=== PATIENT | female | born 1995 | race African-American/Black ===

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

== ENCOUNTER 2017-01-13 16:06 | Emergency (ER) | payer OTHER ==
[2017-01-13] MEDS ORDERED: Lorazepam 2 MG/ML VIAL ONE ×3 (16:23→18:08)
[2017-01-13 17:00] LABS: Oxyhemoglobin 97.5 % (94.0-97.0); Sodium 140 mmol/L (135-148)
[2017-01-13 17:03] LABS: Mode NC; Modified Allen's Test POSITIVE; Vent NO
[2017-01-13 18:13] LABS: #Basophils 0.1 thou/uL (0.0-0.2); #Eosinphils 0.1 thou/uL (0.0-0.7); #Monocytes 0.3 thou/uL (0.11-0.59); #Neutrophils 2.8 thou/uL (1.40-6.50); %Basophils 2.5 % (0.0-1.0); %Eosinophils 2.1 % (0.0-10.0); %Lymphocytes 37.5 % (28.0-48.0); %Monocytes 5.8 % (0.0-4.0); Hematocrit 36.3 % (36.0-47.0); Red Blood Cell (RBC) Count 4.48 mill/uL (4.00-5.20); White Blood Cell (WBC) Count 5.4 thou/uL (4.8-10.8)
[2017-01-13 18:27] LABS: ALT (SGPT) Less than 7 U/L (8-55); AST (SGOT) 13 U/L (5-30); Alkaline Phosphatase 61 U/L (40-150); Anion Gap 12 mmol/L (10-20); BUN (Urea Nitrogen) 6 mg/dL (8.4-21.0); Bilirubin, Total 0.4 mg/dL (0.2-1.2); Calc. Creatinine Clearance 0 mL/min (70-130); Calcium 9.5 mg/dL (7.8-10.44); Carbon Dioxide 20 mmol/L (22-29); Chloride 107 mmol/L (98-107); Dilantin Less than 1.8 ug/mL (10.0-20.0); Estimated GFR-MDRD Greater than 90; Globulin 3.7 g/dL (2.4-3.5)
== END 2017-01-13 19:11 | disposition home or self-care (01) ==
LOC: ERS 16:06
DX: R56.9 Unspecified convulsions (principal)
CPT/HCPCS: 36415; 80053; 80185; 82805; 84146; 85025; 96374; 96376; J2060

== ENCOUNTER 2017-10-15 12:38 | Inpatient (IN) | payer OTHER ==
[2017-10-15] MEDS ORDERED: Lorazepam 2 MG/ML VIAL ONE ×2 (13:32→14:49)
[2017-10-15 13:53] LABS: BHCG - Serum Negative (NEGATIVE); Pregs Control Background? CLEAR/WHITE (CLR/WHITE); Pregs Control Bar Appear? YES (CONTROL BAR)
[2017-10-15 14:08] LABS: ALT (SGPT) 10 U/L (8-55); AST (SGOT) 16 U/L (5-30); Albumin 4.6 g/dL (3.5-5.0); Alkaline Phosphatase 56 U/L (40-150); Anion Gap 16 mmol/L (10-20); BUN (Urea Nitrogen) 9 mg/dL (8.4-21.0); Bilirubin, Total 0.8 mg/dL (0.2-1.2); Calc. Creatinine Clearance 0 mL/min (70-130); Calcium 9.8 mg/dL (7.8-10.44); Carbon Dioxide 20 mmol/L (22-29); Chloride 107 mmol/L (98-107); Estimated GFR-MDRD Greater than 90; Globulin 3.5 g/dL (2.4-3.5); Glucose 75 mg/dL (70-105); Potassium 3.9 mmol/L (3.5-5.1); Protein, Total 8.1 g/dL (6.0-8.3); Sodium 139 mmol/L (136-145)
--- NOTE | 2017-10-15 14:21 | CT ---
CT BRAIN WITHOUT CONTRAST: Comparison: 09-14-16 History: Multiple seizures today. Technique: Multiple contiguous axial images were obtained in a CT of the brain without contrast. FINDINGS: The brain is normal in morphology and attenuation without focal lesions or confluent areas of infarct ion. There is no evidence of hydrocephalus, intracranial hemorrhage, or extraaxial fluid collection. The calvarium and overlying soft tissues are unremarkable. The visualized paranasal sinuses and masto id air cells are well aerated. IMPRESSION: 1. No evidence of acute intracranial abnormality. POS: [facility]
[2017-10-15 14:24] LABS: #Basophils 0.1 thou/uL (0.0-0.2); #Lymphocytes 1.6 thou/uL (1.20-3.40); #Monocytes 0.3 thou/uL (0.11-0.59); #Neutrophils 2.4 thou/uL (1.40-6.50); %Basophils 1.5 % (0.0-1.0); %Lymphocytes 36.3 % (28.0-48.0); %Monocytes 6.1 % (0.0-4.0); %Neutrophils 55.1 % (31.0-61.0); Mean Corpuscular HGB CONC 32.6 g/dL (32.0-36.0); Mean Corpuscular Hemoglobin 25.7 pg (25.0-35.0); Mean Corpuscular Volume 78.9 fL (78.0-98.0); Mean Platelet Volume 7.8 fL (7.4-10.4); Platelet Count 238 thou/uL (130-400); RBC Distribution Width 13.5 % (11.5-14.5); Red Blood Cell (RBC) Count 4.66 mill/uL (4.00-5.20); White Blood Cell (WBC) Count 4.3 thou/uL (4.8-10.8)
[2017-10-15] MEDS ORDERED: Midazolam HCl 2 mg/2 ml Vial ONE ×2 (15:14→15:21)
[2017-10-15] MEDS ORDERED: Succinylcholine Chloride 20 MG/ML 10 ml SYRINGE FS ONE (15:30)
[2017-10-15] MEDS ORDERED: SODIUM CHLORIDE 0.9% IVPB SCH (15:45)
[2017-10-15] MEDS ORDERED: FOSPHENYTOIN SODIUM IVPB SCH (15:45)
[2017-10-15] MEDS ORDERED: fentaNYL Citrate/PF 2,000 MCG in Sodium Chloride 0.9% 60 ML IV SCH (16:00)
[2017-10-15] MEDS ORDERED: Fentanyl 100 MCG/2 ML VIAL ONE (16:05)
[2017-10-15] MEDS ORDERED: Propofol 1,000 MG/100 ML VIAL IV ONE (16:05)
[2017-10-15] MEDS ORDERED: Acetaminophen 650 MG Suppository PR PRN (16:19)
[2017-10-15] MEDS ORDERED: Bisacodyl 10 MG SUPP PR PRN (16:19)
[2017-10-15] MEDS ORDERED: Lacri-Lube Opth Oint 3.5 GM TUBE EA EYE PRN (16:19)
[2017-10-15] MEDS ORDERED: Bisacodyl 5 MG TAB PO PRN (16:19)
[2017-10-15] MEDS ORDERED: CCU Electrolyte Replacement 1 EACH IVPB ONE (16:19)
[2017-10-15 16:22] LABS: Actual Bicarbonate (HCO3a) 18.4 mEq/L (22-28); CO2 Tension 32.7 mmHg (35.0-45.0); Carboxyhemoglobin (COHb) 0.3 gm% (0.0-3.0); Hemoglobin (Hb) 11.4 g/dL (11.4-15.4); O2 Tension (PaO2) 136.7 mmHg (80.0-100.0); pH, Arterial 7.37 (7.35-7.45)
[2017-10-15 16:23] LABS: Analyzer IN Cardio ER; Calcium, Ionized 1.2 mmol/L (1.12-1.30); Potassium - ABG Lab 3.5 mmol/L (3.70-5.30); Puncture Site LR
[2017-10-15 16:24] LABS: ALV-art Gradient 178.925 (0-20)
--- NOTE | 2017-10-15 16:33 | RAD ---
CHEST 1 VIEW: COMPARISON: 12/18/16. HISTORY: Seizure. FINDINGS: Endotracheal tube at the level of the clavicles. Nasogastric tube extends into the diaphragm. Dista l tip is not seen. Normal cardiac silhouette. Pulmonary vessels and hilum are normal. Costophrenic angles are clear. No consolidation or mass. No pneumothorax or osseous abnormalities. IMPRESSION: No acute cardiopulmonary process. POS: [facility]
[2017-10-15] MEDS ORDERED: Magnesium Oxide 400 MG TAB PO PRN ×2 (16:51)
[2017-10-15] MEDS ORDERED: Potassium Phosphate 9 MMOL in Sodium Chloride 0.9% 100 ML IVPB PRN (16:51)
[2017-10-15] MEDS ORDERED: Magnesium 2 GM/NS 0.9% 100 ML 2 GM in Premix Bag 1 BAG IVPB PRN (16:51)
[2017-10-15] MEDS ORDERED: Potassium Chloride 40 MEQ in Sodium Chloride 0.9% 250 ML 250 ML IVPB PRN (16:51)
[2017-10-15] MEDS ORDERED: Potassium Chloride 40 MEQ in Premix Bag 1 BAG IVPB PRN (16:51)
[2017-10-15] MEDS ORDERED: Potassium Chloride 20 MEQ TAB PO PRN (16:51)
[2017-10-15] MEDS ORDERED: CCU ELECTROLYTE REPLACEMENT PROTOCOL FS PRN (16:51)
[2017-10-15] MEDS ORDERED: Potassium Phosphate 12 MMOL in Sodium Chloride 0.9% 250 ML 250 ML IV PRN (16:51)
[2017-10-15] MEDS ORDERED: Potassium Phosphate 15 MMOL in Sodium Chloride 0.9% 250 ML 250 ML IV PRN (16:51)
--- NOTE | 2017-10-15 17:02 | HP ---
PRIMARY CARE PROVIDER: Melyssa Solano M.D. CHIEF COMPLAINT: Seizure. HISTORY OF PRESENT ILLNESS: Ms. Frausto is a 21-year-old lady who was seen at [facility] on 10/15/2017 for seizure. The patient is currently intubated, unable to provide any hist ory. No family members available by the bedside. History was obtained from review of medical record s as well as discussion with the emergency room physician. Ms. Frausto has a history of seizures and is reportedly taking phenytoin at home. She started having seizure this afternoon. She had 3 seizures today prior to arrival at the emergency room. In the [facility] room, she had at least 4 seizures. She was intubated for airway protection. She also receive d Versed. Currently, she is receiving fentanyl. She also received a loading dose of fosphenytoin. Emergency room physician has discussed her case with the neurologist tree surgeon as well as critical care physician and patient is being admitted to CCU. REVIEW OF SYSTEMS: Could not be completed secondary to patient's intubated status. PAST MEDICAL HISTORY: Seizure disorder and dysautonomia. PAST SURGICAL HISTORY: None. ALLERGIES: TAMIFLU and STEROIDS. FAMILY HISTORY: Significant for cancer, hypertension, and diabetes. MEDICATIONS: Need to be clarified. PHYSICAL EXAMINATION: GENERAL: On examination, Ms. Frausto is intubated and sedated, not in acute distress. VITAL SIGNS: Blood pressure is 122/74, pulse 99, respiratory rate 22, and oxygen saturation 100%. S he is afebrile. EYES: No scleral icterus. No conjunctival pallor. ENT: Patient has an endotracheal tube. NECK: Trachea is midline, no cervical lymphadenopathy. RESPIRATORY: Accessory muscles of breathing are not active. Chest wall movements are symmetric bila terally. LUNGS: Clear to auscultation without wheeze, rhonchi or crepitations. CARDIOVASCULAR: S1 and S2 are heard, regular. Peripheral pulse is palpable. No carotid bruit, no p ericardial rub. ABDOMEN: Soft, nontender, bowel sounds are heard, no hepatomegaly, no splenomegaly. NEUROLOGIC: Full neurologic examination not possible secondary to the patient's noncooperation. No facial droop, deep tendon reflexes are 2+. SKIN: No rashes or subcutaneous nodules. MUSCULOSKELETAL: Spontaneous movement of all 4 extremities. LYMPHATIC: No cervical lymphadenopathy. PSYCHIATRIC: Unable to assess mood, affect or orientation to person, place, and time. IMAGING DATA AND LABORATORY DATA: Ms. Frausto's labs and investigations were reviewed. I reviewed he r electrocardiogram, which shows sinus tachycardia, with a corrected QT interval of 446 milliseconds, no ST changes to suggest an acute coronary syndrome. I also reviewed her chest x-ray, which shows e ndotracheal tube in place, no pulmonary infiltrates. Noncontrast CT scan of the brain did not show a ny evidence of acute intracranial abnormality. She has mild leukopenia with 4,300 white cells, enrike l hemoglobin, normal platelet count, unremarkable comprehensive metabolic profile, negative serum pre gnancy test and phenytoin level less than 1.8 and levetiracetam level less than 2.0. ASSESSMENT AND PLAN: Ms. Frausto is a 21-year-old lady who was seen at [facility] on 10/15/2017. Her problem list includes: 1. Seizures: Ms. Frausto is being admitted to the hospital for seizures. She is currently intubated and mechanically ventilated, on fentanyl for sedation. She will be admitted to the critical care it. She has received a loading dose of fosphenytoin, which I will continue at 100 mg 3 times a day. Neurology Service and Pulmonary Critical Care Medicine Services are also being consulted. 2. Leukopenia: Mild, we will recheck. 3. Intubated status: The patient is intubated for airway protection. She will be managed in the itical care unit. 4. Acidosis: Her bicarbonate is low at 20, likely secondary to lactic acidosis from seizure. We wi ll check prolactin level and lactic acid. LEVEL OF RISK: High. LEVEL OF COMPLEXITY: High.
[2017-10-15 18:21] LABS: Lactic Acid 3.4 mmol/L (0.5-2.2)
[2017-10-15 21:06] VITALS: BMI 22.4
--- NOTE | 2017-10-15 23:39 | CON ---
DATE OF CONSULTATION: 10/15/2017 Ms. Frausto is a 21-year-old female. She presented with and "for seizures." She was subsequently intubated after Ativan for somnolence. I was consulted to assist in her management. Mother is actually a decent historian. She says her daughter has been followed extensively at [facility] by a neurologist down there and has actually had EEG monitoring while she was having a seizure. She was told at that time she had pseud oseizures. She is also followed by a cardiac brand director in the [place] and told she has autonomic ins tability, for which she takes midodrine during the day and propranolol at bedtime. Her mother says s he takes her medicine like she is supposed and eats salt and drinks Gatorade like she is supposed to. She does not have any problems. In the past, she was on Keppra and then apparently was hospitalized here with seizures, taken off Kep pra and placed on Dilantin. Her neurologist in [place] declined to refill her Dilantin. The recent seizures that have occurred (4 on 10/10/2017) the mother said lasted about 30 seconds, but were not followed up by a postictal state. Her mother says her neurologist says she may be having seizures now, even though she had pseudoseizur es in the past. She was last hospitalized here in 11/2016. PAST MEDICAL HISTORY: Otherwise unremarkable, except for those related to her dysautonomia and her n eurological issues. There is an old note that says she has narcolepsy. FAMILY HISTORY: Negative for lung disease in early age. SOCIAL HISTORY: She is not a smoker or drinker. ALLERGIES: She is reportedly allergic to OSELTAMIVIR. REVIEW OF SYSTEMS: Not obtainable. She is intubated. PHYSICAL EXAMINATION: VITAL SIGNS: Her blood pressure is 120 systolic, her heart rate was in the 70s. GENERAL: She was awake. She can move all her extremities. She nodded to questions. HEENT: Pupils were equal. NECK: Supple. LUNGS: Clear. HEART: Regular rhythm, no S3. ABDOMEN: Soft. EXTREMITIES: Without asymmetry. LABORATORY DATA: White count 4.3, hemoglobin 12.0, platelets 238. Sodium 139, potassium 3.9, chloride 107, bicarbonate 20, BUN 9, creatinine 0.84. PH 7.37, CO2 of 32, pO2 of 136 on presentation after intubation. IMPRESSION: ?pseudoseizures. History is more supportive of pseudoseizures and actual generalized tonic-clonic seizures. Obviously, she is at a disadvantage, because her neurologist is not seeing her here. His refusal to refill her Dilantin when she followed up with him after admission in 2017 would strongly argue that s he does not have a true seizure disorder. In any event, as I explained to the mother and the grandmother, we will assume that she does have a r eal seizure disorder, keep her comfortable this evening, and then extubate her in the morning if ther e are no further seizure episodes. Dr. Rhodes has seen in the past. Neurology should be consulted as well as her neurologist in [place]. Critical care time was 30 minutes.
[2017-10-16 05:36] LABS: Anion Gap 15 mmol/L (10-20); BUN (Urea Nitrogen) 9 mg/dL (8.4-21.0); Calc. Creatinine Clearance 101 mL/min (70-130); Calcium 9.1 mg/dL (7.8-10.44); Carbon Dioxide 14 mmol/L (22-29); Chloride 109 mmol/L (98-107); Estimated GFR-MDRD Greater than 90; Glucose 73 mg/dL (70-105); Potassium 3.7 mmol/L (3.5-5.1); Sodium 134 mmol/L (136-145)
[2017-10-16 06:23] LABS: #Lymphocytes 0.9 thou/uL (1.20-3.40); #Monocytes 0.5 thou/uL (0.11-0.59); #Neutrophils 6.6 thou/uL (1.40-6.50); %Basophils 0.2 % (0.0-1.0); %Eosinophils 0.2 % (0.0-10.0); %Lymphocytes 11.3 % (28.0-48.0); %Neutrophils 82.3 % (31.0-61.0); Hemoglobin 10.9 g/dL (12.0-16.0); Mean Corpuscular HGB CONC 34.3 g/dL (32.0-36.0); Mean Corpuscular Hemoglobin 26.7 pg (25.0-35.0); Mean Corpuscular Volume 77.8 fL (78.0-98.0); Platelet Count 231 thou/uL (130-400); RBC Distribution Width 13.3 % (11.5-14.5); Red Blood Cell (RBC) Count 4.07 mill/uL (4.00-5.20)
[2017-10-16] MEDS: Enoxaparin Sodium 40 MG/0.4 ML SYRINGE SC SCH (09:00)
[2017-10-16] MEDS: Fosphenytoin Sodium 100 MG in Sodium Chloride 0.9% 50 ML IVPB SCH ×3 (09:00→20:24)
--- NOTE | 2017-10-16 12:00 | PRG ---
DATE OF SERVICE: 10/16/2017 SUBJECTIVE: Kelton Frausto was on fentanyl this morning, but would awaken. Her mother reported that she had 30 minutes "seizure." She had no postictal state. Within 10 minutes she was scratching her nose. PHYSICAL EXAMINATION: VITAL SIGNS: Heart rate 116, respiratory rate was in the teens. Oximetry is in the high 90s. LUNGS : Lungs are clear. HEART: Regular rhythm. ABDOMEN: Abdomen is soft. EXTREMITIES: Without asymmetry. LABORATORY DATA: White count 8.0, hemoglobin 10.9, platelets 231. Sodium 134, potassium 3.7, chlori de 109, bicarbonate 14, BUN 9, creatinine 0.74. Anion gap is 11. Lactate was 3.4 yesterday. IMPRESSION: ? Pseudoseizures. Since I do not have access to the records where the mother reports that she had seizures while connec rae to an EEG machine and was given a diagnosis of pseudoseizures. I am hesitant to say with certain ty that that is what is going on. It certainly clinically appears to be what is going on. The fact that the neurologist in [place] did not keep her on Dilantin after she was discharged here on Dilanti n would argue that. I have recommended extubation. This has been done successfully. If she is stable throughout the aft ernoon she can be transferred to the Stroke Unit. We will sign up off on transfer out of the Critical Care Unit. Critical care time was 30 minutes.
--- NOTE | 2017-10-16 15:27 | PDOC.PN ---
- Subjective Encounter Start Date: 10/16/17 Encounter Start Time: 12:00 -: old records requested/rev Pt seen and exmained, chart reviewe din its entirety, this is my frist visit with this patient complaint of weakness No F/C, no N/V/d/C, no CP or sOB. All systesm reviewed adn neg x as per hPI - Objective MAR Reviewed: Yes Vital Signs & Weight: Vital Signs (12 hours) Temp Pulse Resp BP Pulse Ox 10/16/17 12:00 99.2 F 10/16/17 10:28 94 L 10/16/17 10:24 116 H 12 94 L 10/16/17 10:00 16 10/16/17 09:20 119 H 106/64 10/16/17 08:00 99 F 14 10/16/17 07:10 115 H 96/58 L 10/16/17 04:00 98.1 F 16 Weight Weight 114 lb 13.773 oz Most Recent Monitor Data Heart Rate from ECG 121 NIBP 96/57 NIBP BP-Mean 67 Respiration from ECG 22 SpO2 100 I&O: 10/15/17 10/16/17 10/17/17 06:59 06:59 06:59 Intake Total 55.9 Output Total 590 580 Balance -590 -524.1 Result Diagrams: 10/16/17 05:58 10/16/17 04:37 Radiology Reviewed by me: Yes EKG Reviewed by me: Yes Phys Exam - Physical Examination Constitutional: NAD HEENT: PERRLA, moist MMs, sclera anicteric, oral pharynx no lesions Neck: no nodes, no JVD, supple, full ROM Respiratory: no wheezing, no rales, no rhonchi, clear to auscultation bilateral Cardiovascular: RRR, no significant murmur, no rub Gastrointestinal: soft, non-tender, no distention, positive bowel sounds Musculoskeletal: no edema, pulses present Neurological: non-focal, normal sensation, moves all 4 limbs Lymphatic: no nodes Psychiatric: normal affect, A&O x 3 Skin: no rash, normal turgor, cap refill <2 seconds Dx/Plan - Plan cont current plan of care, social staff worker, out of bed/ambulate * .
[2017-10-16] MEDS: Propranolol 60 MG TAB PO SCH (20:30)
[2017-10-17 05:08] LABS: #Lymphocytes 1.8 thou/uL (1.20-3.40); #Monocytes 0.5 thou/uL (0.11-0.59); #Neutrophils 7.9 thou/uL (1.40-6.50); %Basophils 0.1 % (0.0-1.0); %Eosinophils 0.3 % (0.0-10.0); %Lymphocytes 17.4 % (28.0-48.0); %Monocytes 5.3 % (0.0-4.0); Hemoglobin 11.1 g/dL (12.0-16.0); Mean Corpuscular HGB CONC 34.5 g/dL (32.0-36.0); Mean Corpuscular Hemoglobin 26.9 pg (25.0-35.0); Mean Corpuscular Volume 77.9 fL (78.0-98.0); Mean Platelet Volume 7.2 fL (7.4-10.4); Platelet Count 221 thou/uL (130-400); RBC Distribution Width 13.3 % (11.5-14.5); Red Blood Cell (RBC) Count 4.12 mill/uL (4.00-5.20); White Blood Cell (WBC) Count 10.3 thou/uL (4.8-10.8)
[2017-10-17 05:20] LABS: Anion Gap 16 mmol/L (10-20); BUN (Urea Nitrogen) 9 mg/dL (8.4-21.0); Calc. Creatinine Clearance 93 mL/min (70-130); Calcium 9.1 mg/dL (7.8-10.44); Carbon Dioxide 15 mmol/L (22-29); Chloride 109 mmol/L (98-107); Dilantin 22.9 ug/mL (10.0-20.0); Estimated GFR-MDRD Greater than 90; Glucose 61 mg/dL (70-105); Magnesium 2.2 mg/dL (1.7-2.2); Sodium 136 mmol/L (136-145)
[2017-10-17] MEDS: Enoxaparin Sodium 40 MG/0.4 ML SYRINGE SC SCH (08:37)
[2017-10-17] MEDS: Fosphenytoin Sodium 100 MG in Sodium Chloride 0.9% 50 ML IVPB SCH ×3 (08:37→21:00)
[2017-10-17] MEDS: Acetaminophen 325 MG TAB PO PRN (20:57)
[2017-10-17] MEDS: Propranolol 60 MG TAB PO SCH (20:58)
[2017-10-17] MEDS: Ondansetron ODT 4 MG TAB PO PRN (22:29)
[2017-10-18] MEDS: Fosphenytoin Sodium 100 MG in Sodium Chloride 0.9% 50 ML IVPB SCH (08:19)
[2017-10-18] MEDS: Enoxaparin Sodium 40 MG/0.4 ML SYRINGE SC SCH (08:19)
--- NOTE | 2017-10-18 08:22 | PRG ---
DATE OF SERVICE: 10/18/2017 CONSULTING PHYSICIAN: Hospitalist Service. HISTORY OF PRESENT ILLNESS: Ms. Frausto came in through the emergency room yesterday with repetitive seizures. She was noted to be acidotic with a bicarbonate of 15. Her CT scan of the brain was unrem arkable. She was loaded with Dilantin. Her current Dilantin level is 23. She was previously seen i n 11/2016 for a viral illness and seizure activity. Apparently she has not been compliant with the D ilantin. There is some history of pseudoseizures superimposed on this. She was extubated and moved to the Neurology Unit. She has not had any further seizure activity. She reports some muscle sorene ss, but otherwise has been stable. She was able to eat yesterday. SUMMARY: I would continue Dilantin 300 mg at night. I will be happy to follow up with her in the of pop.
[2017-10-18 11:43] VITALS: BP 95/61; TEMP 99.2
[2017-10-18] MEDS: Acetaminophen 325 MG TAB PO PRN (12:25)
--- NOTE | 2017-10-18 13:38 | DIS ---
DATE OF ADMISSION: 10/15/2017 DATE OF DISCHARGE: 10/18/2017 PRIMARY CARE PHYSICIAN: Melyssa Solano M.D. NEUROLOGIST: Was seen by Rowdy Rhodes M.D. DISCHARGE DIAGNOSES: 1. Status epilepticus. 2. Seizure disorder. 3. Hypertension. CONSULTATIONS: Rowdy Rhodes M.D. PROCEDURES: None. HISTORY AND PHYSICAL: Ms. Frausto is a 21-year-old female who presented in respirato ry failure, intubated, after being found down with tonic clonic type activity. She presented to the emergency department where she was evaluated. HOSPITAL COURSE: The patient was seen and examined in the emergency department by the provider and w e were called for admission. The patient was intubated and was admitted to the Critical Care Unit. Pulmonary Critical Care was consulted and was seen that evening by Dr. Tariq Miller. The patient was extubated over the next morning and did well. She remained stable and no further seizures and loade d with fosphenytoin and was transferred to the floor on 10/17/2017. She was seen ultimately by Neurology on 10/18/2017, recommended to continue p.o. Dilantin and outpat ient followup. The patient was seizure free and was subsequently discharged on p.o. Dilantin. PHYSICAL EXAMINATION: The patient was seen and examined on the day of discharge. Discharge plan and disposition were discussed with the patient [id number] at the bedside. DISCHARGE MEDICATIONS: 1. Phenytoin 100 mg p.o. t.i.d. Prescription sent. 2. Propranolol 60 mg p.o. at bedtime. 3. Midodrine 10 mg p.o. t.i.d. FOLLOWUP APPOINTMENTS: 1. Primary care physician within a week. 2. Rowdy Rhodes M.D. per his clinic. DISCHARGE CONDITION: Stable. DISPOSITION: Will be discharged home via private vehicle. ACTIVITY: Per cardiopulmonary limits. DISCHARGE DIET: Heart healthy recommended.
[2017-10-18] MEDS: Ondansetron ODT 4 MG TAB PO PRN (13:44)
--- NOTE | 2017-10-19 11:20 | EKG ---
Test Reason : Blood Pressure : / mmHG Vent. Rate : 101 BPM Atrial Rate : 101 BPM P-R Int : 138 ms QRS Dur : 086 ms QT Int : 344 ms P-R-T Axes : 066 076 038 degrees QTc Int : 446 ms Sinus tachycardia Otherwise normal ECG Confirmed by DANIEL FLANAGAN DO ([id number]), desk editor PAWAN CAR ([id number]) on 10/19/2017 11:19:43 AM Referred By: Confirmed By:DANIEL FLANAGAN DO
== END 2017-10-18 14:22 | disposition home or self-care (01) | DRG 101 ==
LOC: ERS 12:38 → CCU 19:32 → 2SE 10-17 18:47
PROVIDERS: ADMIT Internal Medicine; ATTEND Internal Medicine
PROC: 0BH17EZ Insertion of Endotracheal Airway into Trachea, Via Natural or Artificial Opening (ICD-10-PCS; principal; 2017-10-15)
PROC: 5A1935Z Respiratory Ventilation, Less than 24 Consecutive Hours (ICD-10-PCS; 2017-10-15)
DX: G40.901 Epilepsy, unspecified, not intractable, with status epilepticus (principal); E87.2 Acidosis; I10 Essential (primary) hypertension; G47.419 Narcolepsy without cataplexy; Z88.8 Allergy status to other drugs, medicaments and biological substances; D72.819 Decreased white blood cell count, unspecified
CPT/HCPCS: 31500; 36415; 70450; 71045; 80048; 80053; 80177; 80185; 82805; 83605; 83735; 84146; 84703; 85025; 93005; 94002; 94003; J1650; J2060; J2250; J2704; J3010; J7050; Q0162; Q2009

== ENCOUNTER 2017-11-08 20:42 | Emergency (ER) | payer OTHER ==
[2017-11-08] MEDS ORDERED: Lorazepam 2 MG/ML VIAL ONE (21:09)
[2017-11-08] MEDS ORDERED: Fosphenytoin Sodium 1,500 MG in Sodium Chloride 0.9% 100 ML IVPB SCH (21:15)
[2017-11-08 21:26] LABS: #Basophils 0.1 thou/uL (0.0-0.2); #Eosinphils 0.2 thou/uL (0.0-0.7); #Lymphocytes 2.3 thou/uL (1.20-3.40); #Monocytes 0.6 thou/uL (0.11-0.59); #Neutrophils 5.4 thou/uL (1.40-6.50); %Basophils 1.3 % (0.0-1.0); %Eosinophils 2.1 % (0.0-10.0); %Lymphocytes 26.8 % (28.0-48.0); %Monocytes 6.7 % (0.0-4.0); %Neutrophils 63.1 % (31.0-61.0); Mean Corpuscular HGB CONC 32.7 g/dL (32.0-36.0); Mean Corpuscular Hemoglobin 26.1 pg (25.0-35.0); Mean Corpuscular Volume 79.9 fL (78.0-98.0); Mean Platelet Volume 7.2 fL (7.4-10.4); Platelet Count 271 thou/uL (130-400); Red Blood Cell (RBC) Count 4.23 mill/uL (4.00-5.20); White Blood Cell (WBC) Count 8.6 thou/uL (4.8-10.8)
[2017-11-08 21:49] LABS: ALT (SGPT) Less than 7 U/L (8-55); AST (SGOT) 11 U/L (5-30); Albumin 4.2 g/dL (3.5-5.0); Alkaline Phosphatase 62 U/L (40-150); Anion Gap 12 mmol/L (10-20); BUN (Urea Nitrogen) 6 mg/dL (8.4-21.0); Bilirubin, Total 0.3 mg/dL (0.2-1.2); Calc. Creatinine Clearance 0 mL/min (70-130); Calcium 9.4 mg/dL (7.8-10.44); Carbon Dioxide 23 mmol/L (22-29); Chloride 109 mmol/L (98-107); Dilantin Less than 1.8 ug/mL (10.0-20.0); Estimated GFR-MDRD Greater than 90; Globulin 3.8 g/dL (2.4-3.5); Glucose 82 mg/dL (70-105); Potassium 3.8 mmol/L (3.5-5.1); Sodium 140 mmol/L (136-145)
[2017-11-08 21:51] LABS: BHCG - Serum Negative (NEGATIVE); Pregs Control Background? CLEAR/WHITE (CLR/WHITE); Pregs Control Bar Appear? YES (CONTROL BAR)
== END 2017-11-08 23:13 | disposition home or self-care (01) ==
LOC: ERS 20:42
DX: G40.909 Epilepsy, unspecified, not intractable, without status epilepticus (principal); R89.2 Abnormal level of other drugs, medicaments and biological substances in specimens from other organs, systems and tissues; Z79.899 Other long term (current) drug therapy
CPT/HCPCS: 36415; 80053; 80185; 82550; 83605; 84146; 84703; 85025; 94760; 96361; 96365; 96375; J2060; J7050; Q2009

== ENCOUNTER 2018-09-06 20:25 | Emergency (ER) | payer OTHER ==
[~2018-09-06 20:25] MED LIST: Iopamidol 370 76% 100 ML VIAL ONE
[2018-09-06] MEDS ORDERED: Morphine 4 MG/ML VIAL ONE (21:02)
[2018-09-06] MEDS ORDERED: Ondansetron PF 4 MG/2 ML Vial ONE (21:02)
[2018-09-06 21:37] LABS: #Basophils 0.1 thou/uL (0.0-0.2); #Eosinphils 0.1 thou/uL (0.0-0.7); #Lymphocytes 2.1 thou/uL (1.20-3.40); #Monocytes 0.5 thou/uL (0.11-0.59); #Neutrophils 3.9 thou/uL (1.40-6.50); %Basophils 1.3 % (0.0-1.0); %Eosinophils 1.5 % (0.0-10.0); %Lymphocytes 31.5 % (28.0-48.0); %Neutrophils 57.7 % (31.0-61.0); Hemoglobin 11.9 g/dL (12.0-16.0); Mean Corpuscular HGB CONC 32.2 g/dL (32.0-36.0); Mean Corpuscular Hemoglobin 25.5 pg (25.0-35.0); Mean Corpuscular Volume 79.3 fL (78.0-98.0); Mean Platelet Volume 7.3 fL (7.4-10.4); Platelet Count 292 thou/uL (130-400); RBC Distribution Width 13.2 % (11.5-14.5); Red Blood Cell (RBC) Count 4.67 mill/uL (4.00-5.20); White Blood Cell (WBC) Count 6.7 thou/uL (4.8-10.8)
[2018-09-06 21:44] LABS: BHCG - Serum Negative (NEGATIVE); Pregs Control Background? CLEAR/WHITE (CLR/WHITE); Pregs Control Bar Appear? YES (CONTROL BAR)
[2018-09-06 21:57] LABS: ALT (SGPT) 7 U/L (8-55); AST (SGOT) 12 U/L (5-34); Albumin 4.8 g/dL (3.5-5.0); Alkaline Phosphatase 56 U/L (40-150); Anion Gap 18 mmol/L (10-20); BUN (Urea Nitrogen) 10 mg/dL (7.0-18.7); Bilirubin, Total 0.4 mg/dL (0.2-1.2); Calc. Creatinine Clearance 0 mL/min (70-130); Calcium 10.4 mg/dL (7.8-10.44); Carbon Dioxide 20 mmol/L (22-29); Chloride 106 mmol/L (98-107); Estimated GFR-MDRD Greater than 90; Globulin 3.5 g/dL (2.4-3.5); Glucose 83 mg/dL (70-105); Potassium 3.8 mmol/L (3.5-5.1); Protein, Total 8.3 g/dL (6.0-8.3); Sodium 140 mmol/L (136-145)
--- NOTE | 2018-09-06 22:22 | CT ---
CT Brain WO Con: 09/06/2018 8:49 PM CLINICAL HISTORY: Pain injury. COMPARISON: None. FINDINGS: Hemorrhage: None. Ventricular system: Normal in size and morphology for the patient's age. Cerebral parenchyma: Normal Midline shift: None. Mass: No mass effect. Calvarium: Normal. Visualized Paranasal sinuses: Clear. IMPRESSION: No acute intracranial abnormalities.
--- NOTE | 2018-09-06 22:23 | CT ---
CT Cervical Spine WO Con Indication: Pain/Injury COMPARISON: None FINDINGS: Acute fracture/subluxation: None Spinal alignment: No acute malalignment. Vertebral body heights: Maintained. Cervical spine degenerative change: None of significance. IMPRESSION: No acute osseous abnormality.
--- NOTE | 2018-09-06 22:31 | CT ---
EXAM: Chest, Abdomen and Pelvic CT scan with contrast: CT thoracic spine with contrast CT lumbar spine with contrast 3-D volume rendering HISTORY: Pain, injury COMPARISON: None FINDINGS: No consolidation, suspicious nodule, or mass. No pleural effusion. No pneumothorax. No adenopathy. No acute process of the mediastinal structures. Liver: Unremarkable. Gallbladder:Unremarkable. Pancreas:Unremarkable Spleen:Unremarkable. Adrenal glands:Unremarkable. Kidneys:No renal calculus or acute obstruction.No solid or cystic mass. Bowel: Incomplete evaluation without enteric contrast. Areas of wall prominence of the colon may rela te to underdistention and unopacified state. Correlate clinically. Urinary Bladder: Moderate distention Adenopathy:No adenopathy within the abdomen or pelvis. Free Air: No free air. Ascites: Trace free pelvic fluid Osseous structures: No acute osseous abnormalities. IMPRESSION: No acute posttraumatic sequela is seen. Transcribed Date/Time: 09/06/2018 10:37 PM
== END 2018-09-06 23:00 | disposition home or self-care (01) ==
LOC: ERS 20:25
DX: S09.90XA Unspecified injury of head, initial encounter (principal); R56.9 Unspecified convulsions; M54.2 Cervicalgia; M25.511 Pain in right shoulder; M25.512 Pain in left shoulder; V43.62XA Car passenger injured in collision with other type car in traffic accident, initial encounter
CPT/HCPCS: 36415; 70450; 71260; 72125; 74177; 80053; 84703; 85025; 96374; 96375; J2270; J2405; Q9967

== ENCOUNTER 2018-10-12 17:42 | Inpatient (IN) | payer OTHER ==
[2018-10-12] MEDS ORDERED: Lorazepam 2 MG/ML VIAL ONE ×3 (17:49→23:50)
[2018-10-12 18:27] LABS: Amphetamine Not Detected (NotDetected); Barbiturates Screen Detected (NotDetected); Benzodiazepine Screen Detected (NotDetected); Cocaine Metabolite Screen Not Detected (NotDetected); Medtox Control Line Valid? VALID (VALID); Medtox Reader # READER 4; Methadone Not Detected (NotDetected); Methamphetamine Not Detected (NotDetected); Opiate Screen Not Detected (NotDetected); Oxycodone Screen Not Detected (NotDetected); Phencyclidine (PCP) Not Detected (NotDetected); THC/Cannabinoid Screen Not Detected (NotDetected); Tricyclic Screen Not Detected (NotDetected)
[2018-10-12 18:32] LABS: #Basophils 0.1 thou/uL (0.0-0.2); #Eosinphils 0.1 thou/uL (0.0-0.7); #Lymphocytes 1.7 thou/uL (1.20-3.40); #Monocytes 0.5 thou/uL (0.11-0.59); #Neutrophils 4.2 thou/uL (1.40-6.50); %Basophils 0.9 % (0.0-1.0); %Eosinophils 1.1 % (0.0-10.0); %Monocytes 7.4 % (0.0-4.0); %Neutrophils 64.6 % (31.0-61.0); Hemoglobin 12.3 g/dL (12.0-16.0); Mean Corpuscular HGB CONC 33.8 g/dL (32.0-36.0); Mean Corpuscular Volume 79.9 fL (78.0-98.0); Mean Platelet Volume 7.6 fL (7.4-10.4); Platelet Count 232 thou/uL (130-400); RBC Distribution Width 13.4 % (11.5-14.5); Red Blood Cell (RBC) Count 4.58 mill/uL (4.00-5.20); White Blood Cell (WBC) Count 6.5 thou/uL (4.8-10.8)
[2018-10-12 18:38] LABS: BHCG - Serum Negative (NEGATIVE); Pregs Control Background? CLEAR/WHITE (CLR/WHITE); Pregs Control Bar Appear? YES (CONTROL BAR)
[2018-10-12 18:53] LABS: ALT (SGPT) Less than 7 U/L (8-55); AST (SGOT) 10 U/L (5-34); Albumin 4.3 g/dL (3.5-5.0); Alkaline Phosphatase 55 U/L (40-150); Anion Gap 17 mmol/L (10-20); BUN (Urea Nitrogen) 6 mg/dL (7.0-18.7); Bilirubin, Total 0.4 mg/dL (0.2-1.2); Calc. Creatinine Clearance 0 mL/min (70-130); Calcium 9.7 mg/dL (7.8-10.44); Carbon Dioxide 17 mmol/L (22-29); Chloride 107 mmol/L (98-107); Estimated GFR-MDRD Greater than 90; Globulin 3.3 g/dL (2.4-3.5); Glucose 104 mg/dL (70-105); Potassium 3.5 mmol/L (3.5-5.1); Protein, Total 7.6 g/dL (6.0-8.3); Sodium 137 mmol/L (136-145)
--- NOTE | 2018-10-12 19:33 | CT ---
CT BRAIN WITHOUT CONTRAST: Date: 10/12/18 HISTORY: Seizure. FINDINGS: Comparison made with exam of 09/06/18. No evidence of infarct, hemorrhage, midline shift, or abnormal extra-axial fluid collections are seen . The ventricular size is normal and the basilar cisterns are patent. The bony calvarium is intact. T he visualized paranasal sinuses and mastoid air cells are well aerated. IMPRESSION: No CT evidence of acute intracranial process. POS: ERINA
[2018-10-12] MEDS ORDERED: diphenhydrAMINE 50 MG/ML VIAL ONE (19:38)
[2018-10-12] MEDS ORDERED: Ondansetron ODT 4 MG TAB PO PRN (21:18)
[2018-10-12] MEDS ORDERED: Acetaminophen 325 MG TAB PO PRN (21:18)
[2018-10-12] MEDS ORDERED: Ondansetron PF 4 MG/2 ML Vial IVP PRN (21:18)
[2018-10-12] MEDS ORDERED: Atropine Sulfate 1 mg/10 ml Syringe ONE (23:23)
[2018-10-12] MEDS ORDERED: Lorazepam 2 MG/ML VIAL SLOW IVP SCH (23:30)
[2018-10-12] MEDS ORDERED: Valproate Sodium 1,000 MG in Sodium Chloride 0.9% 100 ML IVPB SCH (23:45)
[2018-10-12 23:53] LABS: Lactic Acid 2.7 mmol/L (0.5-2.2)
[2018-10-12 23:57] VITALS: BMI 22.8
[2018-10-12 23:58] LABS: Anion Gap 14 mmol/L (10-20); BUN (Urea Nitrogen) 5 mg/dL (7.0-18.7); Calc. Creatinine Clearance 99 mL/min (70-130); Calcium 8.9 mg/dL (7.8-10.44); Carbon Dioxide 20 mmol/L (22-29); Chloride 108 mmol/L (98-107); Estimated GFR-MDRD Greater than 90; Glucose 86 mg/dL (70-105); Magnesium 2.1 mg/dL (1.7-2.2); Potassium 3.7 mmol/L (3.5-5.1); Sodium 138 mmol/L (136-145)
[2018-10-13] MEDS ORDERED: Lorazepam 2 MG/ML VIAL SLOW IVP PRN (00:11)
[2018-10-13] MEDS ORDERED: Lorazepam 2 MG/ML VIAL SLOW IVP SCH (00:15)
--- NOTE | 2018-10-13 02:25 | HP ---
PRIMARY CARE DOCTOR: Out of town physician. CODE STATUS: Full code. TIME OF EVALUATION: 8:35 p.m. CHIEF COMPLAINT: Seizures. HISTORY OF PRESENT ILLNESS: This is a 22-year-old female patient with past medical history of seizure, usually will have 2 to 3 seizures every month. The patient came to the hospital after having an episode of seizure that lasted for about 1 minute. There were generalized tonic or clonic symptoms that were severe with no clear triggers, no alleviating factors. During my initial examination, the patient was in postictal state, feeling very tired, but unable to communicate. After the patient was placed in the floor, the patient went into status epilepticus, had around 5 seizures in less than 10 minutes. The patient had received benzodiazepine. Seizure had continued, I have given loading dose of valproic acid since the patient has reportedly had some reactions to Keppra and fosphenytoin in the past. We will monitor her in ICU. The patient has a history of being intubated in the past due to status epilepticus. Procalcitonin was high, seems to be a real seizure. REVIEW OF SYSTEMS: Twelve systems were reviewed and negative except for the findings mentioned above. PAST MEDICAL HISTORY: Positive for , postural orthostatic tachycardia syndrome, narcolepsy with cataplexy, chest pain, headaches, lower extremity weakness, exercise intolerance due to syncope. PAST SURGICAL HISTORY: No surgical history. PSYCH HISTORY: No previous psych history. SOCIAL HISTORY: No alcohol, no drugs, no smoking history. Lives at home with parents. FAMILY HISTORY: Reviewed and noncontributory to current presentation. KNOWN ALLERGIES: Oseltamivir (Tamiflu), possible also reactions to fosphenytoin and Keppra reportedly. These 2 medications have cause hypotension and bradycardia. REPORTED MEDICATIONS: From home, 1. Metoprolol 60 mg once a day at bedtime. 2. Midodrine 10 mg three times a day. 3. Flexeril 1 tablet orally every 8 hours. 4. Motrin 800 mg every 8 hours. PHYSICAL EXAMINATION: VITAL SIGNS: On presentation, blood pressure 113/75 with heart rate 108, respiratory rate was 16, oxygen saturation 100 on room air. GENERAL APPEARANCE: The patient is alert, oriented, not in acute distress. HEENT: Eyes, normal conjunctivae. Moist oral mucosa. Anicteric. No JVD. RESPIRATORY: Bilateral air entry. No rales. No wheezing. Symmetric expansion. CARDIOVASCULAR: Regular rate and rhythm except for when the patient has seizure, the patient becomes tachycardic. ABDOMEN: Soft. Normal bowel sounds. MUSCULOSKELETAL: Baseline range of motion and strength. No tenderness. Capillary refill seems to be intact. NEURO: The patient has bilateral lower extremity weakness, reportedly this happened before when she had previous seizures. PSYCH: The patient is alert, oriented, not in acute distress. The patient becomes confused in the postictal state. IMAGING: EKG was reviewed, shows sinus tachycardia at the rate of 122. Brain CT was done, the patient has no evidence of acute intracranial process. LABORATORY DATA: Reviewed. The patient has white count 6.5, hemoglobin 12.3, MCV 79.9, platelet count 232. Sodium 137, potassium 3.5, chloride 107, carbon dioxide 17, anion gap 17, BUN 6, creatinine 0.8, GFR greater than 90, glucose 104. LFTs were negative. Prolactin 171. Serum test was negative. Toxicology was positive for barbiturates and benzodiazepines. ASSESSMENT AND PLAN: The patient will be placed in the hospital with following medical problems. 1. Status epilepticus. The patient has multiple seizures after admission. The patient has been given Ativan and also started on valproic acid. If the patient continues to have seizure after this approach, we might need to might need intubation for this reason. We will continue to monitor in ICU. 2. Deep venous thrombosis prophylaxis. 3. Lactic acidosis likely secondary to acute seizure. Job ID: [id number]
[2018-10-13] MEDS: Sodium Chloride 0.9% 1,000 ML IV SCH ×2 (02:43→11:29)
[2018-10-13 07:31] LABS: Hemoglobin 12.4 g/dL (12.0-16.0); Mean Corpuscular HGB CONC 32.2 g/dL (32.0-36.0); Mean Corpuscular Volume 80.7 fL (78.0-98.0); Mean Platelet Volume 7.5 fL (7.4-10.4); Platelet Count 231 thou/uL (130-400); RBC Distribution Width 13.7 % (11.5-14.5); Red Blood Cell (RBC) Count 4.76 mill/uL (4.00-5.20); White Blood Cell (WBC) Count 7.1 thou/uL (4.8-10.8)
--- NOTE | 2018-10-13 07:44 | PDOC.HOSPP ---
- Subjective Encounter Date: 10/13/18 Encounter Time: 07:42 Subjective: Called to see Ms. Frausto due to an acute seizure. She had some tonic clonic movements,She is non-responsive. She is protecting her airway. - Objective Vital Signs & Weight: Vital Signs (12 hours) Temp Pulse Pulse Pulse Pulse Resp Resp 10/13/18 03:00 98.8 F 10/13/18 00:14 10/12/18 23:55 103 H 111 H 100 20 10/12/18 23:40 98.3 F 10/12/18 22:53 98.6 F 91 12 Resp Resp BP BP BP Pulse Ox Pulse Ox 10/13/18 03:00 10/13/18 00:14 100 10/12/18 23:55 20 20 111/56 L 114/51 L 90/44 L 99 10/12/18 23:40 10/12/18 22:53 98 Pulse Ox Pulse Ox 10/13/18 03:00 10/13/18 00:14 10/12/18 23:55 100 97 10/12/18 23:40 10/12/18 22:53 Weight Weight 116 lb 13.52 oz Most Recent Monitor Data Heart Rate from ECG 94 NIBP 109/64 NIBP BP-Mean 79 Respiration from ECG 15 SpO2 100 I&O: 10/12/18 10/13/18 10/14/18 06:59 06:59 06:59 Intake Total 315 Output Total 150 Balance 165 Result Diagrams: 10/13/18 07:20 10/12/18 23:27 Additional Labs: Accuchecks 10/12/18 23:21 POC Glucose 83 ROS - Medication Medications: Active Medications Generic Name Dose Route Start Last Admin Trade Name Freq PRN Reason Stop Dose Admin Sodium Chloride 1,000 mls @ 100 mls/hr 10/13/18 02:45 10/13/18 02:43 Normal Saline 0.9% IV 1,000 mls .Q10H CORTEZ Administration Lorazepam 2 mg 10/13/18 00:11 10/13/18 07:26 Ativan SLOW IVP 2 mg Q2H PRN Administration SEIZURE ACTIVITY - Exam Eye: PERRL, anicteric sclera Heart: RRR, no murmur, no gallops, no rubs, normal peripheral pulses Respiratory: CTAB, no wheezes, no rales, no ronchi, normal chest expansion, no tachypnea, normal percussion Gastrointestinal: soft, non-tender, non-distended, normal bowel sounds, no palpable masses, no hepatomegaly Extremities: no edema Hosp A/P (1) Status epilepticus Code(s): G40.901 - EPILEPSY, UNSP, NOT INTRACTABLE, WITH STATUS EPILEPTICUS Status: Acute - Plan * Status Epilepticus- She has been loaded with Cerebrex, Will add some scheduled Cerebrex * Will add Valium PRN as an option * She is maintaining her airway, Oxygen saturation are 100% on room air- will hold off on intubation at this time. * Await Neurology evaluation
[2018-10-13 07:46] LABS: Anion Gap 12 mmol/L (10-20); BUN (Urea Nitrogen) 4 mg/dL (7.0-18.7); Calc. Creatinine Clearance 100 mL/min (70-130); Carbon Dioxide 22 mmol/L (22-29); Chloride 108 mmol/L (98-107); Estimated GFR-MDRD Greater than 90; Glucose 67 mg/dL (70-105); Potassium 3.9 mmol/L (3.5-5.1); Sodium 138 mmol/L (136-145)
[2018-10-13] MEDS ORDERED: Diazepam 10 MG/2 ML SYRINGE IVP PRN (07:47)
[2018-10-13 08:14] LABS: Eosinophils 1 % (0-10); Lymphocytes 45 % (28-48); MDiff Complete? YES; Monocytes 4 % (0-4); Neutrophil 50 % (31-61); RBC Morphology Normal
[2018-10-13] MEDS ORDERED: Enoxaparin Sodium 40 MG/0.4 ML SYRINGE SC SCH (09:00)
--- NOTE | 2018-10-13 09:16 | CON ---
DATE OF CONSULTATION: HISTORY OF PRESENT ILLNESS: Kelton Frausto is a 22-year-old female, who came into the hospital after she had seizure activity. Apparently, she is having 2 or 3 episodes per month, unclear whom she is seeing locally. She has some kind of reaction to Keppra in the past, that is why, she was started on fosphenytoin. She was transferred to the ICU and again, she had some kind of episodes of seizure activity. She dropped to status per the nurses. When arrives, she is awake, alert, responsive, except for a headache. She denies any other problem. PAST MEDICAL HISTORY: Pertinent for apparently a diagnosis of cataplexy, though we will try and get additional information when family arrives. PAST SURGICAL HISTORY: None. CHRONIC MEDICATION: As noted includes; 1. Inderal 60 mg at nighttime. 2. Midodrine 10 mg three times a day. 3. She is now getting Dilantin 300 mg every 8 hours. 4. Ativan p.r.n. 5. Zofran p.r.n. 6. Valium p.r.n. ALLERGIES: TAMIFLU. SOCIAL HISTORY: Tobacco, none. Alcohol, none. REVIEW OF SYSTEMS: Otherwise, unremarkable. PHYSICAL EXAMINATION: GENERAL: Awake, alert, and responsive. She moves all 4 extremities. VITAL SIGNS: Blood pressure 128/81, saturations are 100%, respirations 20, and temperature 98. CHEST: Reveals no wheezing or crackles. CARDIAC: Normal S1 and S2. No gallops. ABDOMEN: No masses. DIAGNOSTIC STUDIES: Lytes are normal. CT brain was negative. Prolactin was 171. She had benzodiazepines and barbiturates in her drug screen. IMPRESSION: Seizure activity and respiratory failure. PLAN: Continue present treatment. We will follow in the ICU. TIME SPENT: This is a 45-minute critical care time. Job ID: [id number]
--- NOTE | 2018-10-13 23:01 | CON ---
DATE OF CONSULTATION: 10/13/2018 CONSULTING PHYSICIAN: Hospitalist Service. IMPRESSION: Pseudoseizures. PLAN: Continue home medication. The patient can be moved out of the ICU. HISTORY OF PRESENT ILLNESS: Ms. Frausto is a 22-year-old black female with a known history of pseudoseizures, has been followed by a physician in the [place] area. It is unclear as to what he was treating her with prior to admission. She had what appeared to be one of her seizures and her family brought her into the hospital. She had a CT of the brain done, which was normal. Prolactin was 171. Her tox screen was positive for barbiturates and benzodiazepines. She had a prolonged EEG done today, which was completely normal. She was acting postictal when the EEG was started and the background appeared to be in normal waking background. Her family notes that she was previously diagnosed with nonepileptic seizures. PAST MEDICAL HISTORY: Otherwise negative. ALLERGIES: OSELTAMIVIR. FAMILY HISTORY: Noncontributory. REVIEW OF SYSTEMS: Not obtainable at this point. PHYSICAL EXAMINATION: GENERAL: She is a well-nourished young woman, lying in bed, in no acute distress. VITAL SIGNS: Blood pressure 115/58, pulse 116, saturations 95%, respirations 24. HEENT: Unremarkable. NECK: Supple. EXTREMITIES: No cyanosis or edema. NEUROLOGIC: She is awake and cooperative. Her speech was fluent and clear. Exam was nonfocal. No abnormal movements were seen. Gait was not tested. SUMMARY: A young woman with pseudoseizures. I do not see any acute neurologic issues. Prolactin level should be followed up on to rule out a possibility of a prolactinoma. Job ID: [id number]
[2018-10-14] MEDS: Sodium Chloride 0.9% 1,000 ML IV SCH (00:07)
[2018-10-14 07:48] VITALS: BP 106/65; TEMP 98
[2018-10-14 08:11] LABS: Anion Gap 15 mmol/L (10-20); BUN (Urea Nitrogen) 5 mg/dL (7.0-18.7); Calc. Creatinine Clearance 107 mL/min (70-130); Calcium 9.2 mg/dL (7.8-10.44); Carbon Dioxide 15 mmol/L (22-29); Chloride 110 mmol/L (98-107); Estimated GFR-MDRD Greater than 90; Glucose 65 mg/dL (70-105); Sodium 136 mmol/L (136-145)
--- NOTE | 2018-10-14 09:23 | EEG ---
Referring Physician: Tabby FROST EEG # [id number] TEST TYPE: PORTABLE OVENS SUPERVISOR CONTINUOUS EEG MONITORING REPORT: AN EEG USING THE INTERNATIONAL TEN-TWENTY SYSTEM OF ELECTRODE PLACEMENT WAS PERFORMED. This is a continuous EEG monitoring in the ICU lasting approximately 4 hours. The background activity is predominately 14 hertz beta superimposed on 10 hertz alpha activity. The patient remained awake throughout the study. Photic stimulation was unremarkable. No epileptiform features were seen. IMPRESSION: THIS IS A NORMAL AWAKE EXTENDED EEG. Spd Manager: BECKA [employer] Refrigeration Technician: EEG.JAQUAN TUCKER
--- NOTE | 2018-10-14 10:27 | PDOC.HOSPP ---
- Subjective Encounter Date: 10/14/18 Encounter Time: 10:25 Subjective: Ms. Frausto was seen today in follow-up of seizure disorder. She had an episode earlier today, it lasted only a few seconds. She is resting when I saw her, and her mother is at the bedside. - Objective Vital Signs & Weight: Vital Signs (12 hours) Temp Pulse Resp BP Pulse Ox 10/14/18 09:00 100 10/14/18 07:48 98.0 F 102 H 16 106/65 100 10/14/18 04:00 98.1 F 103 H 18 100/59 L 98 Weight Weight 116 lb 13.52 oz Most Recent Monitor Data Heart Rate from ECG 116 NIBP 109/84 NIBP BP-Mean 92 Respiration from ECG 17 SpO2 100 I&O: 10/13/18 10/14/18 10/15/18 06:59 06:59 06:59 Intake Total 315 1847 Output Total 150 1550 Balance 165 297 Result Diagrams: 10/13/18 07:20 10/14/18 07:37 ROS - Medication Medications: Active Medications Generic Name Dose Route Start Last Admin Trade Name Freq PRN Reason Stop Dose Admin Acetaminophen 650 mg 10/12/18 21:18 10/13/18 22:23 Tylenol PO 650 mg Q4H PRN Administration Headache/Fever/Mild Pain (1-3) Enoxaparin Sodium 40 mg 10/13/18 09:00 10/13/18 08:43 Lovenox SC 40 mg 0900 CORTEZ Administration Sodium Chloride 1,000 mls @ 100 mls/hr 10/13/18 02:45 10/14/18 00:07 Normal Saline 0.9% IV 1,000 mls .Q10H CORTEZ Administration Fosphenytoin Sodium 300 mg/ 56 mls @ 100 mls/hr 10/13/18 08:00 10/14/18 00:07 Sodium Chloride IVPB 56 mls Q8H COTREZ Administration Lorazepam 2 mg 10/13/18 00:11 10/13/18 07:26 Ativan SLOW IVP 2 mg Q2H PRN Administration SEIZURE ACTIVITY - Exam Eye: PERRL, anicteric sclera Heart: RRR, no murmur, no gallops, no rubs, normal peripheral pulses Respiratory: CTAB, no wheezes, no rales, no ronchi, normal chest expansion Gastrointestinal: soft, non-tender, non-distended, normal bowel sounds, no palpable masses Extremities: no cyanosis, no clubbing, no edema Hosp A/P (1) Status epilepticus Code(s): G40.901 - EPILEPSY, UNSP, NOT INTRACTABLE, WITH STATUS EPILEPTICUS Status: Acute (2) 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
--- NOTE | 2018-10-14 12:48 | DIS ---
DATE OF ADMISSION: 10/12/2018 DATE OF DISCHARGE: 10/14/2018 PRIMARY CARE PHYSICIAN: Out of town. DISCHARGE DISPOSITION: Home. PRIMARY DISCHARGE DIAGNOSES: 1. Pseudoseizure. 2. Postural orthostatic hypotension. 3. Narcolepsy with cataplexy. DISCHARGE MEDICATIONS: 1. Propranolol 60 mg at bedtime. 2. Midodrine 10 mg t.i.d. PROCEDURES DONE DURING ADMISSION: The patient had a CT scan of the brain showing no evidence of any acute intracranial process. CODE STATUS: Full code. ALLERGIES: TO OSELTAMIVIR. HOSPITAL COURSE: Ms. Frausto is a pleasant 22-year-old female, who presented to the emergency room with shaking and tonic-clonic like movements. It was thought to be an active seizure. Therefore, she was placed in the ICU. However, during these episodes, she did maintain her airway. Her O2 sats were in the high 90s to 100% on room air. She was, however, given a dose of Cerebyx until she could be seen by her neurologist. She was evaluated by Neurology, underwent an EEG. There was no evidence of any active seizure activity. She has a history of pseudoseizures and it is believed this is the continuation of pseudoseizures. She does have an elevated prolactin level and this will need to be followed up to make sure she does not have some type of prolactinoma and she can follow up with these results with Dr. Rhodes in the outpatient setting. At the time of discharge, she was clinically stable. Her mother was at the bedside. She understood the diagnoses and is willing to take her home. Job ID: [id number]
== END 2018-10-14 11:30 | disposition home or self-care (01) | DRG 880 ==
LOC: ERS 17:42 → OBSVTOIN 19:00 → 2SE 19:00 → CCU 23:45 → 2SE 10-13 22:17
PROVIDERS: ADMIT Internal Medicine; ATTEND Internal Medicine
DX: F44.5 Conversion disorder with seizures or convulsions (principal); E87.2 Acidosis; G47.411 Narcolepsy with cataplexy; I95.1 Orthostatic hypotension; Z88.8 Allergy status to other drugs, medicaments and biological substances; Z79.899 Other long term (current) drug therapy
CPT/HCPCS: 36415; 36416; 70450; 80048; 80053; 80185; 80306; 83605; 83735; 84146; 84703; 85025; 93005; 95816; 95819; A4353; J0461; J1200; J1650; J2060; J3490; Q2009

== ENCOUNTER 2018-11-09 12:31 | Inpatient (IN) | payer OTHER ==
[2018-11-09] MEDS ORDERED: Lorazepam 2 MG/ML VIAL ONE (12:39)
[2018-11-09 13:13] LABS: #Lymphocytes 1.3 thou/uL (1.20-3.40); #Monocytes 0.3 thou/uL (0.11-0.59); #Neutrophils 2.9 thou/uL (1.40-6.50); %Lymphocytes 28.5 % (28.0-48.0); %Neutrophils 63.6 % (31.0-61.0); Hemoglobin 11.7 g/dL (12.0-16.0); Mean Corpuscular HGB CONC 33.4 g/dL (32.0-36.0); Mean Corpuscular Hemoglobin 26.5 pg (25.0-35.0); Mean Corpuscular Volume 79.3 fL (78.0-98.0); Mean Platelet Volume 7.5 fL (7.4-10.4); Platelet Count 270 thou/uL (130-400); RBC Distribution Width 13.7 % (11.5-14.5); Red Blood Cell (RBC) Count 4.41 mill/uL (4.00-5.20); White Blood Cell (WBC) Count 4.5 thou/uL (4.8-10.8)
[2018-11-09 13:34] LABS: ALT (SGPT) 9 U/L (8-55); AST (SGOT) 15 U/L (5-34); Albumin 4.5 g/dL (3.5-5.0); Alkaline Phosphatase 62 U/L (40-150); Anion Gap 17 mmol/L (10-20); BUN (Urea Nitrogen) 7 mg/dL (7.0-18.7); Bilirubin, Total 0.2 mg/dL (0.2-1.2); Calc. Creatinine Clearance 0 mL/min (70-130); Calcium 9.5 mg/dL (7.8-10.44); Carbon Dioxide 17 mmol/L (22-29); Chloride 109 mmol/L (98-107); Estimated GFR-MDRD Greater than 90; Globulin 3.4 g/dL (2.4-3.5); Glucose 82 mg/dL (70-105); Protein, Total 7.9 g/dL (6.0-8.3); Sodium 139 mmol/L (136-145)
--- NOTE | 2018-11-09 13:39 | CT ---
Exam: Head CT without contrast HISTORY: Seizure. COMPARISON: 10/12/2018 FINDINGS: Hemorrhage: No intraparenchymal hemorrhage or extra-axial hematoma. Brain parenchyma: Cortical guadarrama-white matter differentiation is preserved. No mass effect or midline shift. Basilar cisterns are patent. Ventricular system: Ventricles and sulci are patent and symmetric. Calvarium: Intact. Sinuses and mastoid air cells: Adequate aeration. IMPRESSION: No acute intracranial process.
--- NOTE | 2018-11-09 14:18 | RAD ---
Exam: Chest one view HISTORY:Seizure. Increased lactate acid Comparison: 10/15/2017 FINDINGS: Cardiac silhouette: Normal Aorta: Unremarkable Pulmonary vessels: Normal Costophrenic angles: Clear LUNGS: No masses or consolidation. Pneumothorax: None Osseous abnormalities: None IMPRESSION: No acute cardiopulmonary process.
[2018-11-09] MEDS ORDERED: Senokot S 8.6-50 MG TAB PO PRN (14:21)
[2018-11-09] MEDS ORDERED: Lorazepam 2 MG/ML VIAL SLOW IVP PRN (14:25)
[2018-11-09] MEDS ORDERED: levETIRAcetam 500 MG/100 ML PREMIX BAG ONE (14:32)
[2018-11-09 14:40] LABS: Bilirubin Negative (Negative); Blood, Urine Negative (Negative); Clarity Clear (Clear); Glucose, Urine (Dipstick) Normal (Negative); Leukocyte 250 Leu/uL (Negative); Nitrite Negative (Negative); Pregnancy Test - Urine (BHCG) Negative (Negative); Pregu Control Background? CLEAR/WHITE (CLR/WHITE); Pregu Control Bar Appear? YES (CONTROL BAR); Protein, Urine (Dipstick) Negative (Neg-Trace); RBC/HPF 0-3 HPF (0-3); Specific Gravity 1.014 (1.002-1.036); Squamous Epithelial 0-3 HPF (0-3); Urobilinogen Normal mg/dL (Less than 2)
[2018-11-09 14:41] LABS: Bacteria/HPF 1+ HPF (None Seen)
[2018-11-09 14:46] LABS: Amphetamine Not Detected (NotDetected); Barbiturates Screen Not Detected (NotDetected); Benzodiazepine Screen Detected (NotDetected); Cocaine Metabolite Screen Not Detected (NotDetected); Medtox Control Line Valid? VALID (VALID); Medtox Reader # READER 4; Methadone Not Detected (NotDetected); Methamphetamine Not Detected (NotDetected); Opiate Screen Not Detected (NotDetected); Oxycodone Screen Not Detected (NotDetected); Phencyclidine (PCP) Not Detected (NotDetected); THC/Cannabinoid Screen Not Detected (NotDetected); Tricyclic Screen Not Detected (NotDetected)
--- NOTE | 2018-11-09 17:00 | HP ---
PRIMARY CARE PHYSICIAN: Dr. Solano. CHIEF COMPLAINT: Seizure. HISTORY OF PRESENT ILLNESS: Ms. Frausto is a 22-year-old female who presented to the emergency room via EMS for evaluation of seizures, onset SOCK LINER while she was at [employer]. Family reports that the patient had 4 witnessed full body seizures at [employer], lasting about 25 to 30 seconds each. Friend reports that they laid the patient on her side during the seizure, and she was awake. Denies any loss of consciousness. Denies falling. Denies any injury. Friend reports the patient has a history of POTS disease and has taken Keppra and Dilantin. Family reports that she has had seizures for the last 7 years. Mom reports that she has seizure activity, diagnosed as pseudoseizures, whenever she does not follow her diet, does not take her medications, or is under a lot of stress. EMS reports giving the patient 4 mg of Ativan en route and that she seized again outside the ambulance bay coming into the ER. The patient was admitted here to Critical Care in September of this year for a similar episode and was evaluated by Dr. Rhodes, our neurologist. At that time, her prolactin was 171. On this visit, her prolactin was within normal range. Evidently on the last visit, she had a prolonged EEG, which was completely normal. On this visit in the ER, her lactic acid was found to be elevated at 6.8, chloride 109, carbon dioxide 17, but otherwise unremarkable. White blood cell count 4.5, hemoglobin 11.7, and hematocrit 35. Urine found trace of ketones, leukocyte esterase, white blood cells, +1 bacteria. test was negative that was sent off for culture. Toxicology, Dilantin level was found to be less than 1.8, and everything I detected on her urine drug screen was benzodiazepines at which EMS started en route. She is going to be admitted for observation and for further workup for increased lactic acid. REVIEW OF SYSTEMS: Twelve systems reviewed and are negative unless mentioned in the HPI. PAST MEDICAL HISTORY: Positive for postural orthostatic tachycardia syndrome, narcolepsy with cataplexy, chest pain, headaches, lower extremity weakness, exercise intolerance due to her syncope, and pseudoseizures. PAST SURGICAL HISTORY: None. PSYCHIATRIC HISTORY: None. SOCIAL HISTORY: No alcohol, drug, or smoking history. Lives at home with parents. FAMILY HISTORY: Reviewed and noncontributory to presentation. KNOWN ALLERGIES: Tamiflu. She has also had reactions to fosphenytoin and Keppra. Reports that these two medications cause hypotension and bradycardia. HOME MEDICATIONS: Which still need to be verified; midodrine and propranolol. PHYSICAL EXAMINATION: VITAL SIGNS: Blood pressure 122/77, pulse is 97, respirations are 16, temperature is 98.4, and PO2 sats are 97% on room air. CONSTITUTIONAL: The patient is alert, although not answering questions; she will follow commands however. HEENT: Head is atraumatic and normocephalic. Eyes; eyelids are normal to inspection. Pupils are equally round and reactive to light. There is nystagmus present. ENT, mucous membranes are dry. Mouth exam is normal. NECK: Trachea is midline. No tenderness. RESPIRATORY/CHEST: Breath sounds are clear. Chest expansion is equal. CARDIOVASCULAR: Regular heart rate and rhythm. Heart sounds are normal. ABDOMEN: Nontender. Bowel sounds are heard. BACK: Normal range of motion. No tenderness. EXTREMITIES: Upper extremities, normal range of motion. Strength is normal. Radial pulses are normal. Lower extremities, normal range of motion. Motor strength is normal. Pedal pulses are normal. No edema is noted. NEUROLOGIC: The patient is alert, answering questions. SKIN: Warm, dry, normal in color. IMAGING: EKG in the emergency room shows regular rate and rhythm, pulse is 100. ST segments normal. T-waves normal. Head CT, no findings of any acute process. Portable chest x-ray, no findings of any acute findings. ASSESSMENT AND PLAN: 1. Seizure activity in the context of normal prolactin and history of pseudoseizures. We will continue to monitor. Ativan as needed for any seizure activity. We will contact Neurology for a consult. We did appreciate their recommendations. 2. Lactic acidosis. So far, workup for signs of infection has so far been negative. We will repeat lactic acid. Await cultures. 3. History of postural orthostatic tachycardia syndrome. We will continue home medications. 4. Dehydration. Normal saline 100 mL per hour has been ordered. We will monitor. 5. Deep venous thrombosis and gastrointestinal prophylaxis have been started. 6. Case discussed with Dr. Robledo who agrees with plan. 7. Hospital course dependent on clinical findings. Job ID: [id number]
[2018-11-09] MEDS: Acetaminophen 325 MG TAB PO PRN (17:11)
[2018-11-09] MEDS: Sodium Chloride 0.9% 1,000 ML IV SCH (17:16)
[2018-11-09 17:36] LABS: Lactic Acid 1.6 mmol/L (0.5-2.2)
[2018-11-09] MEDS: cefTRIAXone\\ROCEPHIN 1 GM in Sodium Chloride 0.9% 100 ML IVPB SCH (18:22)
[2018-11-09] MEDS: Midodrine HCl 5 MG TAB PO SCH (21:03)
[2018-11-09] MEDS: Famotidine 20 MG TAB PO SCH (21:04)
[2018-11-09] MEDS: Propranolol HCl 20 MG TAB PO SCH (21:05)
[2018-11-09] MEDS ORDERED: Ondansetron PF 4 MG/2 ML Vial IVP PRN (21:40)
[2018-11-10] MEDS: Acetaminophen 325 MG TAB PO PRN ×2 (03:15→20:48)
[2018-11-10 03:40] LABS: #Basophils 0.1 thou/uL (0.0-0.2); #Eosinphils 0.1 thou/uL (0.0-0.7); #Lymphocytes 2.7 thou/uL (1.20-3.40); #Monocytes 0.5 thou/uL (0.11-0.59); %Basophils 1.4 % (0.0-1.0); %Eosinophils 1.6 % (0.0-10.0); %Lymphocytes 36.6 % (28.0-48.0); %Monocytes 6.9 % (0.0-4.0); %Neutrophils 53.5 % (31.0-61.0); Hemoglobin 11.2 g/dL (12.0-16.0); Mean Corpuscular HGB CONC 31.3 g/dL (32.0-36.0); Mean Corpuscular Volume 83.2 fL (78.0-98.0); Mean Platelet Volume 7.5 fL (7.4-10.4); Platelet Count 252 thou/uL (130-400); White Blood Cell (WBC) Count 7.4 thou/uL (4.8-10.8)
[2018-11-10 03:57] LABS: Anion Gap 11 mmol/L (10-20); BUN (Urea Nitrogen) 5 mg/dL (7.0-18.7); Calc. Creatinine Clearance 117 mL/min (70-130); Calcium 8.5 mg/dL (7.8-10.44); Carbon Dioxide 20 mmol/L (22-29); Chloride 111 mmol/L (98-107); Estimated GFR-MDRD Greater than 90; Glucose 86 mg/dL (70-105); Potassium 3.7 mmol/L (3.5-5.1); Sodium 138 mmol/L (136-145)
[2018-11-10] MEDS: Sodium Chloride 0.9% 1,000 ML IV SCH ×3 (04:31→23:23)
[2018-11-10] MEDS: Midodrine HCl 5 MG TAB PO SCH ×3 (08:55→20:27)
[2018-11-10] MEDS: Famotidine 20 MG TAB PO SCH ×2 (08:55→20:27)
[2018-11-10] MEDS: lamoTRIgine 100 MG TAB PO SCH (12:03)
--- NOTE | 2018-11-10 13:03 | PDOC.HOSPP ---
- Subjective Encounter Date: 11/10/18 Encounter Time: 12:57 Subjective: 22 y/o female with POTS and seizure disorder admitted with recurrent seizures. 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 During my visit, patient was verbalizing and later went into involuntary tonic clonic movement with eyes staring into space which later subsided with most jerking movement of the right limbs. It soon became generalized once again and later subsided with patient becoming unresponsive afterwards. Seizure episode lasted about 5 minutes in total. - Objective Vital Signs & Weight: Vital Signs (12 hours) Temp Pulse Resp BP Pulse Ox 11/10/18 12:00 98.6 F 51 L 20 112/59 L 98 11/10/18 08:55 96 11/10/18 08:00 98.6 F 73 16 100/52 L 96 11/10/18 03:52 97.7 F 69 16 115/61 98 Weight Weight 129 lb 1.6 oz I&O: 11/09/18 11/10/18 11/11/18 06:59 06:59 06:59 Intake Total 1370 Balance 1370 Result Diagrams: 11/10/18 03:31 11/10/18 03:31 Hospitalist ROS - Medication Medications: Active Medications Generic Name Dose Route Start Last Admin Trade Name Freq PRN Reason Stop Dose Admin Acetaminophen 650 mg 11/09/18 14:21 11/10/18 03:15 Tylenol PO 650 mg Q4H PRN Administration Headache/Fever/Mild Pain (1-3) Famotidine 20 mg 11/09/18 21:00 11/10/18 08:55 Pepcid PO 20 mg BID COTREZ Administration Sodium Chloride 1,000 mls @ 100 mls/hr 11/09/18 14:30 11/10/18 04:31 Normal Saline 0.9% IV 1,000 mls .Q10H CORTEZ Administration Ceftriaxone Sodium 1 gm/ 100 mls @ 200 mls/hr 11/09/18 18:00 11/09/18 18:22 Sodium Chloride IVPB 100 mls Q24HR CORTEZ Administration Lamotrigine 100 mg 11/10/18 09:00 11/10/18 12:03 Lamictal PO 100 mg DAILY CORTEZ Administration Midodrine 10 mg 11/09/18 21:00 11/10/18 08:55 Proamatine PO 10 mg TID CORTEZ Administration Propranolol HCl 60 mg 11/09/18 21:00 11/09/18 21:05 Inderal PO Not Given HS CORTEZ - Exam General Appearance: awake alert General - other findings: Became unresponsive after seizure ENT: normocephalic atraumatic Heart: RRR Respiratory: no wheezes, no rales, no ronchi, normal chest expansion Gastrointestinal: soft, non-tender, non-distended, normal bowel sounds Extremities: no cyanosis, no edema Neurological: cranial nerve grossly intact Hosp A/P (1) Recurrent seizures Code(s): G40.909 - EPILEPSY, UNSP, NOT INTRACTABLE, WITHOUT STATUS EPILEPTICUS Status: Acute (2) UTI (urinary tract infection) Status: Acute (3) Lactic acidosis Code(s): E87.2 - ACIDOSIS Status: Acute (4) POTS (postural orthostatic tachycardia syndrome) Code(s): R00.0 - TACHYCARDIA, UNSPECIFIED; I95.1 - ORTHOSTATIC HYPOTENSION Status: Chronic - Plan Continue Rocephin while awaiting urine culture Defer anti epileptic to Neurologist. Seizure precaution to continue. Continue home medications. Diet as tolerated. PT/OT eval and treat
[2018-11-10] MEDS: cefTRIAXone\\ROCEPHIN 1 GM in Sodium Chloride 0.9% 100 ML IVPB SCH (18:26)
[2018-11-10] MEDS: Propranolol HCl 20 MG TAB PO SCH (23:23)
[2018-11-11] MEDS: Sodium Chloride 0.9% 1,000 ML IV SCH (08:53)
[2018-11-11] MEDS: Midodrine HCl 5 MG TAB PO SCH (08:54)
[2018-11-11] MEDS: Famotidine 20 MG TAB PO SCH (08:54)
[2018-11-11] MEDS: lamoTRIgine 100 MG TAB PO SCH (08:54)
[2018-11-11 09:13] VITALS: BMI 21.9
--- NOTE | 2018-11-11 11:04 | PDOC.HOSPP ---
- Subjective Encounter Date: 11/11/18 Encounter Time: 11:02 Subjective: Ms. Frausto was seen today in follow-up of acute seizure. She is awake and alert , no complaints. - Objective Vital Signs & Weight: Vital Signs (12 hours) Temp Pulse Resp BP Pulse Ox 11/11/18 08:00 98.3 F 57 L 15 105/64 97 11/11/18 04:00 98.3 F 50 L 16 101/50 L 99 11/10/18 23:48 98.2 F 46 L 16 110/57 L 98 Weight Admit Weight 112 lb Weight 112 lb I&O: 11/10/18 11/11/18 11/12/18 06:59 06:59 06:59 Intake Total 1370 900 Balance 1370 900 Result Diagrams: 11/10/18 03:31 11/10/18 03:31 Hospitalist ROS - Medication Medications: Active Medications Generic Name Dose Route Start Last Admin Trade Name Freq PRN Reason Stop Dose Admin Acetaminophen 650 mg 11/09/18 14:21 11/10/18 20:48 Tylenol PO 650 mg Q4H PRN Administration Headache/Fever/Mild Pain (1-3) Famotidine 20 mg 11/09/18 21:00 11/11/18 08:54 Pepcid PO 20 mg BID CORTEZ Administration Sodium Chloride 1,000 mls @ 100 mls/hr 11/09/18 14:30 11/11/18 08:53 Normal Saline 0.9% IV 1,000 mls .Q10H CORTEZ Administration Lamotrigine 100 mg 11/10/18 09:00 11/11/18 08:54 Lamictal PO 100 mg DAILY CORTEZ Administration Midodrine 10 mg 11/09/18 21:00 11/11/18 08:54 Proamatine PO 10 mg TID CORTEZ Administration Ondansetron HCl 4 mg 11/09/18 21:40 11/10/18 20:28 Zofran IVP 4 mg Q6H PRN Administration Nausea/Vomiting Propranolol HCl 60 mg 11/09/18 21:00 11/10/18 23:23 Inderal PO Not Given HS CORTEZ - Exam Eye: PERRL, anicteric sclera Heart: RRR, no murmur, no gallops, no rubs, normal peripheral pulses Respiratory: CTAB, no wheezes, no rales, no ronchi, normal chest expansion, no tachypnea, normal percussion Gastrointestinal: soft, non-tender, non-distended, normal bowel sounds, no palpable masses, no hepatomegaly Extremities: no cyanosis, no clubbing, no edema Hosp A/P (1) Recurrent seizures Code(s): G40.909 - EPILEPSY, UNSP, NOT INTRACTABLE, WITHOUT STATUS EPILEPTICUS Status: Acute (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 Rhodes * D/C home
[2018-11-11 12:34] VITALS: BP 111/67; TEMP 98.4
--- NOTE | 2018-11-12 00:32 | DIS ---
DATE OF ADMISSION: 11/09/2018 DATE OF DISCHARGE: 11/11/2018 DISCHARGE DISPOSITION: Home. PRIMARY DISCHARGE DIAGNOSES: 1. Pseudoseizures. 2. History of narcolepsy. DISCHARGE MEDICATIONS: Include: 1. Inderal 60 mg at bedtime. 2. Lamictal 100 mg daily. PROCEDURES DONE DURING THE ADMISSION: The patient had a CT scan of the brain, which was negative for any acute intracranial process. CODE STATUS: Full code. ALLERGIES: TO TAMIFLU. HOSPITAL COURSE: Ms. Frausto is a pleasant 22-year-old female, who presented to the emergency room with seizure-like activity. She was brought into observation. CT scan of the head was negative. There was no evidence of any obvious infection. Urinalysis was essentially negative. Urine drug screen was negative other than benzodiazepines, which were likely administered in the ER. She was seen by her neurologist. He recommended starting Lamictal and to have close outpatient followup. Job ID: [id number]
== END 2018-11-11 12:38 | disposition home or self-care (01) | DRG 880 ==
LOC: ERS 12:31 → 2SE 13:53
PROVIDERS: ADMIT Internal Medicine; ATTEND Internal Medicine
DX: F44.5 Conversion disorder with seizures or convulsions (principal); E87.2 Acidosis; E86.0 Dehydration; Z79.899 Other long term (current) drug therapy
CPT/HCPCS: 36415; 51701; 70450; 71045; 80048; 80053; 80185; 80306; 81003; 81015; 81025; 83605; 84146; 85025; 87086; 93005; 94760; 96360; A4353; J0696; J1953; J2060; J2405; J3490

== ENCOUNTER 2019-01-12 21:48 | Inpatient (IN) | payer OTHER ==
[2019-01-12] MEDS ORDERED: levETIRAcetam 500 MG/100 ML PREMIX BAG ONE (21:59)
[2019-01-12] MEDS ORDERED: Lorazepam 2 MG/ML VIAL ONE (22:06)
[2019-01-12 22:30] LABS: #Basophils 0.1 thou/uL (0.0-0.2); #Eosinphils 0.1 thou/uL (0.0-0.7); #Lymphocytes 1.9 thou/uL (1.20-3.40); #Monocytes 0.5 thou/uL (0.11-0.59); #Neutrophils 4.3 thou/uL (1.40-6.50); %Basophils 0.8 % (0.0-1.0); %Lymphocytes 27.4 % (21.0-51.0); %Monocytes 7.3 % (0.0-10.0); %Neutrophils 63.6 % (42.0-75.0); Hemoglobin 10.6 g/dL (12.0-16.0); Mean Corpuscular HGB CONC 33.3 g/dL (32.0-36.0); Mean Corpuscular Hemoglobin 25.9 pg (27.0-31.0); Mean Corpuscular Volume 77.6 fL (78.0-98.0); Mean Platelet Volume 7.1 fL (7.4-10.4); Platelet Count 280 thou/uL (130-400); RBC Distribution Width 13.5 % (11.5-14.5); Red Blood Cell (RBC) Count 4.09 mill/uL (4.20-5.40); White Blood Cell (WBC) Count 6.8 thou/uL (4.8-10.8)
[2019-01-12 22:47] LABS: Lactic Acid 3.8 mmol/L (0.5-2.2)
[2019-01-12 22:49] LABS: Bilirubin Negative (Negative); Blood, Urine Negative (Negative); Clarity Clear (Clear); Glucose, Urine (Dipstick) Normal (Negative); Leukocyte Negative Leu/uL (Negative); Nitrite Negative (Negative); Protein, Urine (Dipstick) Negative (Neg-Trace); Urobilinogen Normal mg/dL (Less than 2)
[2019-01-12 22:50] LABS: Pregnancy Test - Urine (BHCG) Negative (Negative); Pregu Control Background? CLEAR/WHITE (CLR/WHITE); Pregu Control Bar Appear? YES (CONTROL BAR); Specific Gravity 1.017 (1.002-1.036)
[2019-01-12 22:51] LABS: ALT (SGPT) Less than 7 U/L (8-55); AST (SGOT) 11 U/L (5-34); Albumin 3.9 g/dL (3.5-5.0); Alkaline Phosphatase 54 U/L (40-110); Anion Gap 13 mmol/L (10-20); BUN (Urea Nitrogen) 8 mg/dL (7.0-18.7); Bilirubin, Total 0.4 mg/dL (0.2-1.2); Calc. Creatinine Clearance 0 mL/min (70-130); Calcium 8.8 mg/dL (7.8-10.44); Carbon Dioxide 22 mmol/L (22-29); Chloride 110 mmol/L (98-107); Estimated GFR-MDRD Greater than 90; Globulin 2.9 g/dL (2.4-3.5); Glucose 79 mg/dL (70-105); Potassium 3.7 mmol/L (3.5-5.1); Protein, Total 6.8 g/dL (6.0-8.3); Sodium 141 mmol/L (136-145)
--- NOTE | 2019-01-12 22:53 | CT ---
EXAM: Brain CTWithout contrast: HISTORY: Seizure altered mental status COMPARISON: 11/09/2018 FINDINGS: No focal mass or midline shift. No intra or extra-axial hemorrhage. Sinuses and mastoids are clear of acute process. IMPRESSION: No mass or bleed or other significant acute intracranial process.
[2019-01-12 23:00] LABS: Amphetamine Not Detected (NotDetected); Barbiturates Screen Not Detected (NotDetected); Benzodiazepine Screen Detected (NotDetected); Cocaine Metabolite Screen Not Detected (NotDetected); Medtox Control Line Valid? VALID (VALID); Medtox Reader # READER 1; Methadone Not Detected (NotDetected); Methamphetamine Not Detected (NotDetected); Opiate Screen Not Detected (NotDetected); Oxycodone Screen Not Detected (NotDetected); Phencyclidine (PCP) Not Detected (NotDetected); THC/Cannabinoid Screen Detected (NotDetected); Tricyclic Screen Not Detected (NotDetected)
[2019-01-12] MEDS ORDERED: Lorazepam 2 MG/ML VIAL SLOW IVP PRN (23:59)
[2019-01-13] MEDS ORDERED: Ondansetron PF 4 MG/2 ML Vial IVP PRN (01:37)
--- NOTE | 2019-01-13 02:05 | HP ---
PRESENTING COMPLAINT: Status epilepticus. HISTORY OF PRESENT ILLNESS: Ms. Kelton Frausto is a 23-year-old -H[place] female with past medical history of seizure disorder since age 16, status post recently started on lamotrigine 2 months ago during the recurrent status epilepticus activity. Since then patient has been relatively seizure-free, but ran out of her medicine 10 days ago and was unable to fill medication due to oncoming neurology appointment in a month. She has been smoking cannabis off and on. She developed status epilepticus seizure today lasting over 20 minutes and requiring 4 mg 2 doses of Ativan as well as 4 mg of Versed before improvement. She had a repeat episode at the ED requiring an additional 2 mg Ativan and fosphenytoin 1 g loading. She is currently drowsy, but awake and conversant. She has not had any recurrent episodes during the last 2 hours. She denies any cough, chest pain, shortness of breath or dysuria. PAST MEDICAL HISTORY: 1. Significant for seizure activity. 2. Dysautonomia with intermittent hypotension. HOME MEDICATIONS: Include: 1. Midodrine 5 mg b.i.d. 2. Inderal 60 mg at bedtime. 3. Lamotrigine 100 gm daily. ALLERGIES: TAMIFLU. FAMILY HISTORY: No history of any neurological disease in the family. SOCIAL HISTORY: The patient uses cannabis intermittently. Denies any tobacco use. Residing in the community with her spouse. No history of alcohol abuse. REVIEW OF SYSTEMS: All systems review x14 were negative. PHYSICAL EXAMINATION: CURRENT VITAL SIGNS: Blood pressure of 86/51, with a MAP of 62, pulse of 96, respiratory rate of 18, 02 sat 100% on 3 liter nasal cannula. GENERAL: Middle-aged young female, small built, slightly drowsy, but conversant. HEAD: Atraumatic, normocephalic. ENT: Pupils equal, reactive to light, anicteric. NECK: No JVD, no carotid bruits. RESPIRATORY: Good air entry bilaterally. No crepitation. Cardiovascular: S1, S2. Rate and rhythm regular. GI: Abdomen is full, soft, nontender. Bowel sounds positive. EXTREMITIES: No pedal edema. No calf tenderness. NEUROLOGIC: The patient is drowsy, but conversant. Oriented x3, moving extremities equally well. LABORATORY DATA: Prolactin level of 143, hemoglobin 10.6, WBC 6.8, potassium 3.7, chloride 110, bicarb 22. Sodium 141, creatinine 0.7, glucose 79. Urinalysis was negative. Urine drug screen negative except for benzos and cannabinoids. IMAGING: Head CT negative. Urine test negative. IMPRESSION: 1. Status epilepticus, likely due to medication non-adherence, status post dose of fosphenytoin. We will restart lamotrigine, we increased dose to 100 mg b.i.d. Need for adherence with medication discussed. 2. We will consult neurology to see, if scheduled quick neuro followup can be arranged. 3. We admit patient to Neuro Unit, q.2 hours checks, gentle IV fluid with D5NS, keep n.p.o. overnight and start p.o. intake in the a.m. 4. We will restart patient on Midodrine. 5. Deep venous thrombosis prophylaxis, subcutaneous heparin. 6. Advanced directives. The patient is a full code. Total time spent on review of record and discussion with patient as well as mom and evaluation greater than 60 minutes. Job ID: [id number]
[2019-01-13] MEDS: Dextrose 5%-Lactated Ringers 1,000 ML IV SCH ×4 (02:40→23:56)
[2019-01-13] MEDS ORDERED: Midodrine HCl 5 MG TAB PO SCH ×2 (03:00→08:00)
[2019-01-13] MEDS ORDERED: Sodium Chloride 0.9% 1,000 ML IV SCH ×2 (03:00→05:00)
[2019-01-13 05:09] VITALS: BMI 23.2
[2019-01-13 05:09] LABS: Band 1 % (5-11); Eosinophils 1 % (0-10); Hemoglobin 11.3 g/dL (12.0-16.0); Lymphocytes 23 % (21-51); MDiff Complete? YES; Mean Corpuscular Hemoglobin 26.5 pg (27.0-31.0); Mean Corpuscular Volume 77.8 fL (78.0-98.0); Mean Platelet Volume 6.9 fL (7.4-10.4); Monocytes 2 % (0-10); Neutrophil 73 % (42-75); Platelet Count 269 thou/uL (130-400); Platelet Morphology Comment Appears Adequate; RBC Distribution Width 13.6 % (11.5-14.5); Red Blood Cell (RBC) Count 4.28 mill/uL (4.20-5.40); White Blood Cell (WBC) Count 7.2 thou/uL (4.8-10.8)
[2019-01-13 05:24] LABS: ALT (SGPT) Less than 7 U/L (8-55); AST (SGOT) 15 U/L (5-34); Albumin 3.8 g/dL (3.5-5.0); Alkaline Phosphatase 51 U/L (40-110); Anion Gap 9 mmol/L (10-20); BUN (Urea Nitrogen) 5 mg/dL (7.0-18.7); Bilirubin, Total 0.4 mg/dL (0.2-1.2); Calc. Creatinine Clearance 107 mL/min (70-130); Calcium 8.6 mg/dL (7.8-10.44); Carbon Dioxide 24 mmol/L (22-29); Chloride 109 mmol/L (98-107); Estimated GFR-MDRD Greater than 90; Globulin 3.1 g/dL (2.4-3.5); Glucose 121 mg/dL (70-105); Potassium 3.6 mmol/L (3.5-5.1); Protein, Total 6.9 g/dL (6.0-8.3); Sodium 138 mmol/L (136-145)
[2019-01-13 05:29] LABS: Troponin I Less than 0.010 ng/mL (< 0.028)
[2019-01-13] MEDS ORDERED: Hydrocortisone Sod Succ/PF 100 mg/2 ml Vial IVP SCH (08:00)
[2019-01-13] MEDS: lamoTRIgine 100 MG TAB PO SCH ×2 (09:58→21:59)
[2019-01-13] MEDS: Midodrine HCl 5 MG TAB PO SCH ×2 (09:58→21:59)
[2019-01-13] MEDS: Famotidine/PF 20 mg/2ml Vial SLOW IVP SCH ×2 (09:58→22:00)
[2019-01-13] MEDS: Enoxaparin Sodium 40 MG/0.4 ML SYRINGE SC SCH (09:58)
--- NOTE | 2019-01-13 11:42 | PDOC.HOSPP ---
- Subjective Encounter Date: 01/13/19 Encounter Time: 08:15 Subjective: lethargic but follows verbal stimuli says she cant lift both extre but is moving on bed is oriented well - Objective Vital Signs & Weight: Vital Signs (12 hours) Temp Pulse Resp BP Pulse Ox 01/13/19 11:30 98.7 F 88 95/72 97 01/13/19 07:45 78 13 91/63 97 01/13/19 04:00 98.3 F 75 16 113/69 99 01/13/19 01:37 98 F 81 18 84/45 L 97 Weight Admit Weight 118 lb 12.8 oz Weight 118 lb 12.8 oz I&O: 01/12/19 01/13/19 01/14/19 06:59 06:59 06:59 Intake Total 2300 Balance 2300 Result Diagrams: 01/13/19 04:51 01/13/19 04:51 Hospitalist ROS - Medication Medications: Active Medications Generic Name Dose Route Start Last Admin Trade Name Freq PRN Reason Stop Dose Admin Enoxaparin Sodium 40 mg 01/13/19 09:00 01/13/19 09:58 Lovenox SC 40 mg 0900 CORTEZ Administration Famotidine 20 mg 01/13/19 09:00 01/13/19 09:58 Pepcid SLOW IVP 20 mg Q12HR CORTEZ Administration Dextrose/Lactated Ringer's 1,000 mls @ 150 mls/hr 01/13/19 01:37 01/13/19 03: 21 D5 Lr IV 1,000 mls .Q6H40M CORTEZ Administration Lamotrigine 100 mg 01/13/19 09:00 01/13/19 09:58 Lamictal PO 100 mg BID CORTEZ Administration Midodrine 5 mg 01/13/19 09:00 01/13/19 09:58 Proamatine PO 5 mg BID CORTEZ Administration - Exam Eye: PERRL, anicteric sclera ENT: no oropharyngeal lesions, moist mucosa Neck: supple, no JVD Heart: RRR, no murmur Respiratory: no wheezes, no rales Gastrointestinal: soft, non-tender, non-distended, normal bowel sounds Extremities: no cyanosis, no edema Neurological: cranial nerve grossly intact, no focal deficits Hosp A/P (1) Recurrent seizures Code(s): G40.909 - EPILEPSY, UNSP, NOT INTRACTABLE, WITHOUT STATUS EPILEPTICUS Status: Acute (2) Anemia, normocytic normochromic Code(s): D64.9 - ANEMIA, UNSPECIFIED Status: Chronic (3) Dysautonomia Code(s): G90.9 - DISORDER OF THE AUTONOMIC NERVOUS SYSTEM, UNSPECIFIED Status : Chronic (4) 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 TSH in am, preg test is -ve, unclear menstrual history continue lamotrigine for now cortisol stimulation test in am, stat cortisol is normal sbp around 100 which is normal for her per patient continue midodrine for suspected/chronic h/o dysautonomia, unclear if pt has other congenital issues from to amb as tolerated on floor neuro consultation prior extended eeg while pt was post ictal was normal with no epilectiform focus , might need ?video eeg hemo/neuro stable oral diet, dc iv fluids
[2019-01-13] MEDS ORDERED: Cosyntropin 250 MCG VIAL SLOW IVP SCH (11:45)
[2019-01-13] MEDS ORDERED: Magnevist 469MG/ML 20 ML VIAL ONE (14:01)
[2019-01-13] MEDS: Lorazepam 2 MG/ML VIAL SLOW IVP PRN (16:21)
--- NOTE | 2019-01-13 17:27 | MRI ---
MRI BRAIN WITH AND WITHOUT CONTRAST: Sella turcica protocol DATE: 01/13/2019 HISTORY: 23-year-old female with hyperprolactinemia TECHNIQUE: Multiplanar, multisequence MRI of the brain obtained pre and post IV injection of gadolinium based co ntrast agent. In addition to standard whole brain sequences, thin slice coronal and sagittal sequences were obtained through the sella turcica, including dynamic sequences. FINDINGS: The ventricles are normal in size and configuration. There is no midline shift or any other evidence of mass effect. There is no extra-axial fluid collection. There is no intra-axial signal abnormality, abnormal enhancement, mass, recent hemorrhage, or restricted diffusion. Infundibular sta lk is normal and at midline. Optic chiasm is normal. Pituitary gland has normal signal with no focal lesion. No pituitary microadenoma or macroadenoma. Cavernous sinuses are normal. Sella turcica normal size. IMPRESSION: Normal
--- NOTE | 2019-01-13 17:50 | PRG ---
DATE OF SERVICE: 01/13/2019 CONSULTING PHYSICIAN: Hospitalist Service. HISTORY OF PRESENT ILLNESS: Ms. Frausto was admitted after having a bout of recurrent seizures that required multiple doses of Ativan and Versed. She has a history of seizures and had previously been treated with Dilantin, which did not work very well for it. She ran out of her Lamictal 2 days prior to this admission. She came in and had a CT scan of the brain done, which was normal. She has been restarted on her Lamictal. She is doing well now. She had an MRI done, which the results are pending. She is back to her baseline. I discussed the situation with her mother. I will be happy to follow up with her in the office. Job ID: [id number]
[2019-01-13] MEDS ORDERED: Propranolol HCl 20 MG TAB PO SCH (21:00)
[2019-01-13] MEDS ORDERED: FLU VACC QS2019-20(6MOS UP)/PF 60 MCG/0.5 ML SYRINGE IM ONE (21:00)
[2019-01-14] MEDS: Lorazepam 2 MG/ML VIAL SLOW IVP PRN ×2 (03:50→15:58)
[2019-01-14] MEDS ORDERED: Lorazepam 2 MG/ML VIAL SLOW IVP SCH (04:30)
[2019-01-14] MEDS: Acetaminophen 325 MG TAB PO PRN (04:59)
[2019-01-14 06:26] LABS: Free T4 (Free Thyroxine) 0.87 ng/dL (0.70-1.48); Thyroid Stimulating Hormone 3.4834 uIU/mL (0.35-4.94)
[2019-01-14] MEDS: Dextrose 5%-Lactated Ringers 1,000 ML IV SCH ×3 (06:37→23:08)
[2019-01-14] MEDS: lamoTRIgine 100 MG TAB PO SCH ×2 (09:14→22:05)
[2019-01-14] MEDS: Midodrine HCl 5 MG TAB PO SCH ×2 (09:15→22:05)
[2019-01-14] MEDS: Enoxaparin Sodium 40 MG/0.4 ML SYRINGE SC SCH (09:27)
[2019-01-14] MEDS: Famotidine/PF 20 mg/2ml Vial SLOW IVP SCH (09:27)
[2019-01-14] MEDS: HYDROcodone/Acetaminophen 5/325 mg Tablet PO PRN ×2 (11:31→17:14)
--- NOTE | 2019-01-14 11:55 | PDOC.HOSPP ---
- Subjective Encounter Date: 01/14/19 Encounter Time: 11:00 Subjective: Patient seen and examined for Seizures. Have several seizure last night. Gen aches/pain. Also has gen headaches. No photophobia. No new focal deficits. Overnight events noted - Objective Vital Signs & Weight: Vital Signs (12 hours) Temp Pulse Resp BP BP BP Pulse Ox 01/14/19 11:41 98.4 F 72 12 98/55 L 99 01/14/19 07:44 98.2 F 66 14 97/44 L 100 01/14/19 04:45 107 H 14 116/59 L 99 01/14/19 03:57 98 F 74 20 93/49 L 98 01/14/19 00:00 96/56 L Weight Admit Weight 118 lb 12.8 oz Weight 118 lb 12.8 oz I&O: 01/13/19 01/14/19 01/15/19 06:59 06:59 06:59 Intake Total 2300 120 Output Total 550 Balance 2300 -430 Result Diagrams: 01/13/19 04:51 01/13/19 04:51 Radiology Reviewed by me: Yes (MRI brain - negative) EKG Reviewed by me: Yes (Tele SR) Hospitalist ROS - Review of Systems Respiratory: denies: cough, dry, shortness of breath, hemoptysis, SOB with excertion, pleuritic pain, sputum, wheezing, other Cardiovascular: denies: chest pain, palpitations, orthopnea, paroxysmal noc. dyspnea, edema, light headedness, other Gastrointestinal: denies: nausea, vomiting, abdominal pain, diarrhea, constipation, melena, hematochezia, other Genitourinary: denies: dysuria, frequency, incontinence, hematuria, retention, other - Medication Medications: Active Medications Generic Name Dose Route Start Last Admin Trade Name Freq PRN Reason Stop Dose Admin Acetaminophen 650 mg 01/13/19 01:37 01/14/19 04:59 Tylenol PO 650 mg Q4H PRN Administration Headache/Fever/Mild Pain (1-3) Hydrocodone Bitart/Acetaminophen 1 tab 01/13/19 01:37 01/14/19 11:31 Thatcher 5/325 PO 1 tab Q4H PRN Administration Moderate Pain (4-6) Cosyntropin 250 mcg 01/13/19 11:45 01/14/19 05:35 Cortrosyn SLOW IVP 250 mcg WILLCALL CORTEZ Administration Enoxaparin Sodium 40 mg 01/13/19 09:00 01/14/19 09:27 Lovenox SC Not Given 0900 [facility] Dextrose/Lactated Ringer's 1,000 mls @ 150 mls/hr 01/13/19 01:37 01/14/19 06: 37 D5 Lr IV 1,000 mls .Q6H40M CORTEZ Administration Lamotrigine 100 mg 01/13/19 09:00 01/14/19 09:14 Lamictal PO 100 mg BID CORTEZ Administration Midodrine 5 mg 01/13/19 09:00 01/14/19 09:15 Proamatine PO 5 mg BID CORTEZ Administration - Exam General Appearance: NAD Heart: RRR, no gallops, no rubs, normal peripheral pulses Respiratory: CTAB, no rales, no ronchi, normal chest expansion Gastrointestinal: soft, non-tender, non-distended, normal bowel sounds Extremities: no cyanosis, no clubbing, no edema Neurological: cranial nerve grossly intact, normal sensation to touch, no weakness, no focal deficits Psychiatric: normal affect, A&O x 3 Hosp A/P - Plan PT/OT, DVT proph w/lovenox Seizures h/o seizure disorder Autonomic dysfunction Lactic acidosis due to Seizure Headache - prob due to Seizure Chronic Anemia PLAN: Cont Lamictal EEG Neuro input appreciated Add PRN Lorazepam Cont IVF Encourage PO intake AM labs Seizure/Fall precautions
[2019-01-14] MEDS ORDERED: Acetaminophen 650 MG Suppository PR PRN (17:20)
[2019-01-14] MEDS ORDERED: Ibuprofen 200 MG TAB PO PRN (17:20)
[2019-01-14] MEDS: Famotidine 20 MG TAB PO SCH (22:05)
[2019-01-15] MEDS: Lorazepam 2 MG/ML VIAL SLOW IVP PRN ×2 (03:31→09:38)
[2019-01-15] MEDS ORDERED: levETIRAcetam In NaCl (Iso-Os) 1,000 MG in Premix Bag 1 BAG IVPB SCH (04:00)
[2019-01-15] MEDS ORDERED: Lorazepam 2 MG/ML VIAL SLOW IVP SCH ×2 (04:00→05:30)
[2019-01-15 05:22] LABS: Lactic Acid 1.5 mmol/L (0.5-2.2)
[2019-01-15 05:27] LABS: Anion Gap 10 mmol/L (10-20); BUN (Urea Nitrogen) Less than 4 mg/dL (7.0-18.7); Calc. Creatinine Clearance 102 mL/min (70-130); Carbon Dioxide 26 mmol/L (22-29); Chloride 105 mmol/L (98-107); Estimated GFR-MDRD Greater than 90; Glucose 101 mg/dL (70-105); Magnesium 1.7 mg/dL (1.6-2.6); Potassium 3.3 mmol/L (3.5-5.1); Sodium 138 mmol/L (136-145)
[2019-01-15] MEDS ORDERED: Magnesium 2 GM/50 ML 2 GM in Premix Bag 1 BAG IVPB SCH (06:00)
[2019-01-15] MEDS: Dextrose 5%-Lactated Ringers 1,000 ML IV SCH ×4 (07:11→18:06)
[2019-01-15] MEDS: lamoTRIgine 100 MG TAB PO SCH ×2 (10:15→21:32)
[2019-01-15] MEDS: Enoxaparin Sodium 30 MG/0.3 ML SYRINGE SC SCH (10:16)
[2019-01-15] MEDS: Potassium Chloride 20 MEQ TAB PO SCH ×2 (11:00→16:55)
[2019-01-15] MEDS: Famotidine 20 MG TAB PO SCH ×2 (11:01→21:32)
[2019-01-15] MEDS: Midodrine HCl 5 MG TAB PO SCH ×2 (11:01→21:32)
--- NOTE | 2019-01-15 15:53 | PDOC.HOSPP ---
- Subjective Encounter Date: 01/15/19 Encounter Time: 13:00 Subjective: Patient seen and examined for seizure. Had seizures earlier while working with PT. No new focal deficits. Feels gen weak. Headache improving. No new complaints. No overnight events - Objective Vital Signs & Weight: Vital Signs (12 hours) Temp Pulse Pulse Pulse Resp BP BP 01/15/19 11:38 98.0 F 82 16 01/15/19 09:22 86 83 82/49 L 103/61 01/15/19 08:17 98.5 F 76 16 BP BP Pulse Ox Pulse Ox 01/15/19 11:38 103/63 99 01/15/19 09:22 100 01/15/19 08:17 106/62 99 Weight Admit Weight 118 lb 12.8 oz Weight 118 lb 12.8 oz I&O: 01/14/19 01/15/19 01/16/19 06:59 06:59 06:59 Intake Total 120 1171 Output Total 550 Balance -430 1171 Result Diagrams: 01/13/19 04:51 01/15/19 04:44 EKG Reviewed by me: Yes (Tele SR) Hospitalist ROS - Review of Systems Cardiovascular: denies: chest pain, palpitations, orthopnea, paroxysmal noc. dyspnea, edema, light headedness, other Gastrointestinal: denies: nausea, vomiting, abdominal pain, diarrhea, constipation, melena, hematochezia, other - Medication Medications: Active Medications Generic Name Dose Route Start Last Admin Trade Name Freq PRN Reason Stop Dose Admin Acetaminophen 650 mg 01/13/19 01:37 01/14/19 04:59 Tylenol PO 650 mg Q4H PRN Administration Headache/Fever/Mild Pain (1-3) Cosyntropin 250 mcg 01/13/19 11:45 01/14/19 05:35 Cortrosyn SLOW IVP 250 mcg WILLCALL CORTEZ Administration Enoxaparin Sodium 30 mg 01/15/19 09:00 01/15/19 10:16 Lovenox SC Not Given 0900 CORTEZ Famotidine 20 mg 01/14/19 21:00 01/15/19 11:01 Pepcid PO 20 mg BID CORTEZ Administration Dextrose/Lactated Ringer's 1,000 mls @ 125 mls/hr 01/15/19 05:47 01/15/19 07: 11 D5 Lr IV 1,000 mls .Q8H CORTEZ Administration Lamotrigine 100 mg 01/13/19 09:00 01/15/19 10:15 Lamictal PO 100 mg BID CORTEZ Administration Lorazepam 1 mg 01/14/19 11:52 01/15/19 09:38 Ativan SLOW IVP 1 mg Q15MIN PRN Administration Seizures Midodrine 5 mg 01/13/19 09:00 01/15/19 11:01 Proamatine PO 5 mg BID CORTEZ Administration Potassium Chloride 20 meq 01/15/19 08:00 01/15/19 11:00 K-Dur PO 20 meq BID-WM OCRTEZ Administration - Exam General Appearance: NAD Heart: RRR, no rubs Respiratory: CTAB, no rales Gastrointestinal: soft, non-tender, normal bowel sounds Extremities: no edema Hosp A/P - Plan DVT proph w/SCDs Recurrent Seizures Hypokalemia/Hypomagnesemia h/o seizure disorder Autonomic dysfunction Lactic acidosis due to Seizure Headache - prob due to Seizure Chronic Anemia PLAN: Replace electrolytes Cont Lamictal - Lamictal level pending Received 1 g Keppra last night Await Neuro input on further AEDs Cont PRN Lorazepam Cont IVF - reduce rate to 75 Seizure/Fall precautions
[2019-01-15] MEDS ORDERED: HYDROcodone/Acetaminophen 10/325 mg Tablet PO PRN ×2 (16:11)
[2019-01-16] MEDS: Dextrose 5%-Lactated Ringers 1,000 ML IV SCH ×2 (07:04→17:46)
[2019-01-16] MEDS: Famotidine 20 MG TAB PO SCH ×2 (09:18→22:38)
[2019-01-16] MEDS: Potassium Chloride 20 MEQ TAB PO SCH ×2 (09:18→17:45)
[2019-01-16] MEDS: Midodrine HCl 5 MG TAB PO SCH ×2 (09:18→22:40)
[2019-01-16] MEDS: lamoTRIgine 100 MG TAB PO SCH ×2 (09:18→22:38)
[2019-01-16] MEDS: Enoxaparin Sodium 30 MG/0.3 ML SYRINGE SC SCH (09:19)
[2019-01-16] MEDS ORDERED: clonazePAM 0.5 MG TAB PO SCH (10:00)
--- NOTE | 2019-01-16 14:35 | PDOC.HOSPP ---
- Subjective Encounter Date: 01/16/19 Encounter Time: 10:00 Subjective: Pt seen for followup re: seizures. had two episodes earlier. Feels better now. - Objective Vital Signs & Weight: Vital Signs (12 hours) Temp Pulse Resp BP BP BP Pulse Ox 01/16/19 11:44 98.5 F 62 16 99/52 L 98 01/16/19 09:22 96/55 L 01/16/19 08:53 92 18 91/45 L 100 01/16/19 08:00 100 01/16/19 07:53 98.4 F 96 16 102/56 L 96 01/16/19 04:00 98.6 F 82 20 92/48 L 96 Weight Admit Weight 118 lb 12.8 oz Weight 118 lb 12.8 oz I&O: 01/15/19 01/16/19 01/17/19 06:59 06:59 06:59 Intake Total 1171 Balance 1171 Result Diagrams: 01/13/19 04:51 01/15/19 04:44 Additional Labs: Labs and MARs reviewed by me EKG Reviewed by me: Yes (Tele: NSR) Hospitalist ROS - Review of Systems Cardiovascular: denies: chest pain, palpitations, orthopnea, paroxysmal noc. dyspnea, edema, light headedness Gastrointestinal: denies: nausea, vomiting, abdominal pain, diarrhea, constipation, melena, hematochezia - Medication Medications: Active Medications Generic Name Dose Route Start Last Admin Trade Name Freq PRN Reason Stop Dose Admin Acetaminophen 650 mg 01/13/19 01:37 01/14/19 04:59 Tylenol PO 650 mg Q4H PRN Administration Headache/Fever/Mild Pain (1-3) Cosyntropin 250 mcg 01/13/19 11:45 01/14/19 05:35 Cortrosyn SLOW IVP 250 mcg WILLCALL CORTEZ Administration Enoxaparin Sodium 30 mg 01/15/19 09:00 01/16/19 09:19 Lovenox SC Not Given 0900 CORTEZ Famotidine 20 mg 01/14/19 21:00 01/16/19 09:18 Pepcid PO 20 mg BID CORTEZ Administration Dextrose/Lactated Ringer's 1,000 mls @ 75 mls/hr 01/15/19 15:54 01/16/19 07: 04 D5 Lr IV 1,000 mls .[id number] CORTEZ Administration Lamotrigine 100 mg 01/13/19 09:00 01/16/19 09:18 Lamictal PO 100 mg BID CORTEZ Administration Lorazepam 1 mg 01/14/19 11:52 01/15/19 09:38 Ativan SLOW IVP 1 mg Q15MIN PRN Administration Seizures Midodrine 5 mg 01/13/19 09:00 01/16/19 09:18 Proamatine PO 5 mg BID CORTEZ Administration Potassium Chloride 20 meq 01/15/19 08:00 01/16/19 09:18 K-Dur PO 20 meq BID-WM CORTEZ Administration - Exam General Appearance: awake alert Eye: anicteric sclera ENT: moist mucosa Neck: supple Heart: RRR Respiratory: CTAB Gastrointestinal: soft, non-tender Skin: no lesions Psychiatric: normal affect, normal behavior Hosp A/P - Plan Recurrent Seizures Autonomic dysfunction Lactic acidosis due to Seizure Headache - prob due to Seizure Chronic Anemia PLAN: Pt having EEG monitoring. Cont Lamictal Received 1 g Keppra last night Neurology following. Cont PRN Lorazepam Seizure/Fall precautions
[2019-01-16] MEDS: clonazePAM 0.5 MG TAB PO SCH (22:39)
[2019-01-17] MEDS: Midodrine HCl 5 MG TAB PO SCH ×2 (09:43→20:34)
[2019-01-17] MEDS: lamoTRIgine 100 MG TAB PO SCH ×2 (09:43→20:34)
[2019-01-17] MEDS: Potassium Chloride 20 MEQ TAB PO SCH ×2 (09:43→17:07)
[2019-01-17] MEDS: Famotidine 20 MG TAB PO SCH ×2 (09:43→20:34)
[2019-01-17] MEDS: clonazePAM 0.5 MG TAB PO SCH ×2 (09:43→20:34)
[2019-01-17] MEDS: Enoxaparin Sodium 30 MG/0.3 ML SYRINGE SC SCH (09:45)
[2019-01-17] MEDS: Dextrose 5%-Lactated Ringers 1,000 ML IV SCH ×2 (11:38→22:30)
[2019-01-17] MEDS ORDERED: Sodium Chloride 0.9% 500 ML IV SCH ×3 (12:15→17:15)
[2019-01-17 17:11] LABS: Lactic Acid 1.1 mmol/L (0.5-2.2)
--- NOTE | 2019-01-17 20:09 | PDOC.HOSPP ---
- Subjective Encounter Date: 01/17/19 Encounter Time: 20:07 Subjective: CC: seizure like activity Subjective: patient in bed no recent epileptiform activity per nursing. patient crying on my visit, when asked why she states she feels dizzy. she is amenable to attempt to get in chair - low blood pressures throughout day, - Objective Vital Signs & Weight: Vital Signs (12 hours) Temp Pulse Resp BP BP BP BP 01/17/19 19:29 98.8 F 60 16 01/17/19 18:38 01/17/19 16:00 98.0 F 85 20 01/17/19 15:23 01/17/19 15:22 91/45 L 79/51 L 85/53 L 103/60 01/17/19 11:40 01/17/19 11:35 98.1 F 54 L 12 BP BP Pulse Ox 01/17/19 19:29 112/66 98 01/17/19 18:38 112/66 01/17/19 16:00 90/49 L 100 01/17/19 15:23 103/60 01/17/19 15:22 01/17/19 11:40 94/54 L 01/17/19 11:35 82/44 L 98 Weight Admit Weight 118 lb 12.8 oz Weight 118 lb 12.8 oz I&O: 01/16/19 01/17/19 01/18/19 06:59 06:59 06:59 Intake Total 1171 1251 1900 Balance 1171 1251 1900 Result Diagrams: 01/13/19 04:51 01/15/19 04:44 Hospitalist ROS - Medication Medications: Active Medications Generic Name Dose Route Start Last Admin Trade Name Rejiq PRN Reason Stop Dose Admin Acetaminophen 650 mg 01/13/19 01:37 01/14/19 04:59 Tylenol PO 650 mg Q4H PRN Administration Headache/Fever/Mild Pain (1-3) Clonazepam 0.5 mg 01/16/19 21:00 01/17/19 09:43 Klonopin PO 0.5 mg BID CORTEZ Administration Cosyntropin 250 mcg 01/13/19 11:45 01/14/19 05:35 Cortrosyn SLOW IVP 250 mcg WILLCALL CORTEZ Administration Enoxaparin Sodium 30 mg 01/15/19 09:00 01/17/19 09:45 Lovenox SC Not Given 0900 CORTEZ Famotidine 20 mg 01/14/19 21:00 01/17/19 09:43 Pepcid PO 20 mg BID CORTEZ Administration Dextrose/Lactated Ringer's 1,000 mls @ 75 mls/hr 01/15/19 15:54 01/17/19 11: 38 D5 Lr IV 1,000 mls .[id number] CORTEZ Administration Lamotrigine 100 mg 01/13/19 09:00 01/17/19 09:43 Lamictal PO 100 mg BID CORTEZ Administration Lorazepam 1 mg 01/14/19 11:52 01/15/19 09:38 Ativan SLOW IVP 1 mg Q15MIN PRN Administration Seizures Midodrine 5 mg 01/13/19 09:00 01/17/19 09:43 Proamatine PO 5 mg BID CORTEZ Administration Potassium Chloride 20 meq 01/15/19 08:00 01/17/19 17:07 K-Dur PO 20 meq BID-WM CORTEZ Administration Sodium Chloride 10 ml 01/16/19 21:00 01/17/19 09:50 Flush - Normal Saline IVF Not Given Q12HR CORTEZ - Exam General Appearance: NAD, awake alert Eye: PERRL, anicteric sclera ENT: normocephalic atraumatic, moist mucosa Neck: supple, no JVD Heart: RRR, no murmur, no gallops, no rubs, normal peripheral pulses Respiratory: CTAB, no wheezes, no rales, no ronchi, normal chest expansion Gastrointestinal: soft, non-tender, non-distended, normal bowel sounds Extremities: no cyanosis, no clubbing, no edema Skin: no lesions, no rashes Neurological: cranial nerve grossly intact, normal sensation to touch, no weakness, no focal deficits Musculoskeletal: normal tone, normal strength Psychiatric: A&O x 3 Psychiatric - other findings: denies suicidal or homicidal ideations, tearful, denies depressed mood Hosp A/P - Plan Patient is a 23 year old female admitted for: # recurrent seizure activity - neurology restarted on lamictal, no seizure activity today, MRI brain report normal, follow up neurology in office # low BPs - did not respond much to intermittent boluses during day, no focal symptoms or known infection - send lactic acid, cortisol stim test recently performed with satisfactory cosyntropin resoponse - continue IVF, bolus as needed - possibly symptomatic hypotension with dizziness, improved enough for her to be able to get out of bed today which i believe is progresss based on what I have been told and chart review. # elevated lactic acid - initially high presumed due to seizure, now resolved, recheck today normal as well # headache - not complaining of this today, previously presumed due to seizure # chronic anemia - trend CBC # autonomic dysfunction - if low BP persists, consider ju initation All problems new to me today
[2019-01-18] MEDS: Dextrose 5%-Lactated Ringers 1,000 ML IV SCH ×2 (00:48→13:58)
[2019-01-18] MEDS: Enoxaparin Sodium 30 MG/0.3 ML SYRINGE SC SCH (08:18)
[2019-01-18] MEDS: lamoTRIgine 100 MG TAB PO SCH ×2 (08:18→21:32)
[2019-01-18] MEDS: Famotidine 20 MG TAB PO SCH ×2 (08:18→21:32)
[2019-01-18] MEDS: clonazePAM 0.5 MG TAB PO SCH (08:18)
[2019-01-18] MEDS: Midodrine HCl 5 MG TAB PO SCH ×2 (08:18→21:32)
[2019-01-18] MEDS: Potassium Chloride 20 MEQ TAB PO SCH ×2 (08:18→17:33)
[2019-01-18] MEDS ORDERED: clonazePAM 0.5 MG TAB PO PRN (10:20)
--- NOTE | 2019-01-18 16:52 | PDOC.HOSPP ---
- Subjective Subjective: Seen and examined. Patient emotionally labile, crying while I am in the room. States that she does not think she's a able to walk, patient has not tried, states she would try with a walker with therapy. No seizures. No family available at bedside. - Objective Vital Signs & Weight: Vital Signs (12 hours) Temp Pulse Resp BP Pulse Ox 01/18/19 15:43 98 F 67 16 93/50 L 96 01/18/19 12:00 98.3 F 71 16 112/66 100 01/18/19 07:48 98.1 F 86 16 110/57 L 96 Weight Admit Weight 118 lb 12.8 oz Weight 118 lb 12.8 oz I&O: 01/17/19 01/18/19 01/19/19 06:59 06:59 06:59 Intake Total 1251 3160 Balance 1251 3160 Result Diagrams: 01/13/19 04:51 01/15/19 04:44 Radiology Reviewed by me: Yes Hospitalist ROS - Review of Systems All other systems reviewed; all pertinent +/- noted in HPI/Subj - Medication Medications: Active Medications Generic Name Dose Route Start Last Admin Trade Name Freq PRN Reason Stop Dose Admin Acetaminophen 650 mg 01/13/19 01:37 01/14/19 04:59 Tylenol PO 650 mg Q4H PRN Administration Headache/Fever/Mild Pain (1-3) Cosyntropin 250 mcg 01/13/19 11:45 01/14/19 05:35 Cortrosyn SLOW IVP 250 mcg WILLCALL CORTEZ Administration Enoxaparin Sodium 30 mg 01/15/19 09:00 01/18/19 08:18 Lovenox SC Not Given 09 CORTEZ Famotidine 20 mg 01/14/19 21:00 01/18/19 08:18 Pepcid PO 20 mg BID CORTEZ Administration Dextrose/Lactated Ringer's 1,000 mls @ 75 mls/hr 01/15/19 15:54 01/18/19 13: 58 D5 Lr IV 1,000 mls .[id number] CORTEZ Administration Lamotrigine 100 mg 01/13/19 09:00 01/18/19 08:18 Lamictal PO 100 mg BID CORTEZ Administration Lorazepam 1 mg 01/14/19 11:52 01/15/19 09:38 Ativan SLOW IVP 1 mg Q15MIN PRN Administration Seizures Midodrine 5 mg 01/13/19 09:00 01/18/19 08:18 Proamatine PO 5 mg BID CORTEZ Administration Potassium Chloride 20 meq 01/15/19 08:00 01/18/19 08:18 K-Dur PO 20 meq BID-WM CORTEZ Administration Sodium Chloride 10 ml 01/16/19 21:00 01/18/19 08:19 Flush - Normal Saline IVF Not Given Q12HR CORTEZ - Exam General Appearance: NAD Eye: anicteric sclera ENT: normocephalic atraumatic, moist mucosa Neck: supple, symmetric, no lymphadenopathy Heart: RRR, no murmur, no gallops Respiratory: CTAB, no wheezes, no rales, no ronchi Gastrointestinal: soft, non-tender, normal bowel sounds, no palpable masses Extremities: no edema Skin: no lesions, no rashes Neurological: cranial nerve grossly intact, normal sensation to touch, no weakness, no focal deficits Musculoskeletal: no muscle wasting Psychiatric: A&O x 3 Hosp A/P (1) Breakthrough seizure Code(s): G40.919 - EPILEPSY, UNSP, INTRACTABLE, WITHOUT STATUS EPILEPTICUS Status: Acute (2) Lactic acidosis Code(s): E87.2 - ACIDOSIS Status: Acute (3) Recurrent seizures Code(s): G40.909 - EPILEPSY, UNSP, NOT INTRACTABLE, WITHOUT STATUS EPILEPTICUS Status: Acute (4) Dysautonomia Code(s): G90.9 - DISORDER OF THE AUTONOMIC NERVOUS SYSTEM, UNSPECIFIED Status : Chronic (5) POTS (postural orthostatic tachycardia syndrome) Code(s): R00.0 - TACHYCARDIA, UNSPECIFIED; I95.1 - ORTHOSTATIC HYPOTENSION Status: Chronic (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
[2019-01-18] MEDS: Acetaminophen 325 MG TAB PO PRN (19:41)
[2019-01-19] MEDS: Dextrose 5%-Lactated Ringers 1,000 ML IV SCH ×2 (01:01→15:16)
[2019-01-19] MEDS: lamoTRIgine 100 MG TAB PO SCH (09:06)
[2019-01-19] MEDS: Enoxaparin Sodium 30 MG/0.3 ML SYRINGE SC SCH (09:06)
[2019-01-19] MEDS: Midodrine HCl 5 MG TAB PO SCH (09:06)
[2019-01-19] MEDS: Famotidine 20 MG TAB PO SCH (09:07)
[2019-01-19] MEDS: Potassium Chloride 20 MEQ TAB PO SCH (09:07)
[2019-01-19 15:46] VITALS: TEMP 98.5
--- NOTE | 2019-01-19 15:54 | DIS ---
DATE OF ADMISSION: 01/13/2019 DATE OF DISCHARGE: 01/19/2019 DISCHARGING PHYSICIAN: Ayaan Herrera. CONSULTATIONS ON CASE: Rowdy Rhodes MD, Neurology. REASON FOR ADMISSION: Breakthrough seizures with initial status epilepticus features. SIGNIFICANT PROCEDURES: At [facility], MRI of the brain with normal findings. DISCHARGE DIAGNOSES: 1. Breakthrough seizures. The patient has been prescribed Lamictal. Neurology Services at this point of time have been advised for outpatient followup. 2. Lactic acidosis, resolved, likely secondary to volume contraction. 3. Dysautonomia is optimized for outpatient followup. 4. Orthostatic tachycardia syndrome. The patient currently on midodrine. 5. Likelihood of pseudoseizures, for further evaluation as an outpatient. HOSPITAL COURSE: This is a 23-year-old female, admitted to the Hospitalist Services for initial status epilepticus subsequently more stabilized, evaluated by Neurology Services and advised Lamictal. The patient does have extensive history of noncompliance on medication, was also referred to Physical Therapy and Occupational Therapy evaluation and eventually, the patient was advised discharge with home health plan along with continued PT and OT. Advised about Lamictal use at this point of time. Compliant on medications or anti-seizure activity. The patient was hemodynamically optimized on discharge. Case Management was also consulted for arranging Home Health Services. DISPOSITION: Discharged home. PHYSICAL EXAMINATION: CARDIOVASCULAR SYSTEM: S1 and S2. CHEST: Bilateral air entry present. ABDOMEN: Soft. EXTREMITIES: No cyanosis. ALLERGIES: LEVETIRACETAM, OSELTAMIVIR. ACTIVITY: As tolerated with fall precautions. DIET: Regular diet. IMMUNIZATION HISTORY: Up-to-date. DISCHARGE MEDICATIONS: 1. Lamictal 100 mg b.i.d. 2. Midodrine 5 mg b.i.d. DISCHARGE PLAN: The patient has been advised and educated about the diagnosis, treatment, and followup. Has been advised about followup care with Neurology Services in 2 weeks. Advised about compliance on medications and the whole discharge process including discharge coordination took me more than 35 minutes. Job ID: [id number]
[2019-01-19 16:01] VITALS: BP 114/54
== END 2019-01-19 16:40 | disposition home health service (06) | DRG 101 ==
LOC: ERS 21:48 → INTOOBSV 01-13 01:00 → 2SE 01-13 01:00 → OBSVTOIN 01-13 01:00
PROVIDERS: ADMIT Internal Medicine; ATTEND Internal Medicine
DX: G40.901 Epilepsy, unspecified, not intractable, with status epilepticus (principal); E87.2 Acidosis; G90.1 Familial dysautonomia [Riley-Day]; I49.8 Other specified cardiac arrhythmias; R40.2362 Coma scale, best motor response, obeys commands, at arrival to emergency department; R40.2132 Coma scale, eyes open, to sound, at arrival to emergency department; R40.2242 Coma scale, best verbal response, confused conversation, at arrival to emergency department; D64.9 Anemia, unspecified; E87.6 Hypokalemia; E83.42 Hypomagnesemia; F45.8 Other somatoform disorders
CPT/HCPCS: 36415; 36416; 51701; 70450; 70553; 80048; 80053; 80175; 80306; 80400; 81003; 81025; 82533; 83605; 83735; 84146; 84439; 84443; 84481; 84484; 85007; 85025; 85027; 94760; 95816; 95819; 95953; 96361; 96365; 96375; A4353; A9579; J0834; J1650; J1953; J2060; J3475; J7121; Q2009; S0028

== ENCOUNTER 2019-06-14 13:30 | Emergency (ER) | payer OTHER ==
[2019-06-14] MEDS ORDERED: Midazolam HCl 2 mg/2 ml Vial ONE ×2 (13:33→13:52)
[2019-06-14] MEDS ORDERED: Fosphenytoin Sodium 1,500 MG in Sodium Chloride 0.9% 50 ML IVPB SCH (14:15)
[2019-06-14 14:43] LABS: #Eosinphils 0.1 thou/uL (0.0-0.7); #Lymphocytes 1.5 thou/uL (1.20-3.40); #Monocytes 0.5 thou/uL (0.11-0.59); #Neutrophils 5.7 thou/uL (1.40-6.50); %Basophils 0.1 % (0.0-1.0); %Eosinophils 0.7 % (0.0-10.0); %Lymphocytes 19.7 % (21.0-51.0); %Monocytes 6.2 % (0.0-10.0); %Neutrophils 73.2 % (42.0-75.0); Hemoglobin 11.2 g/dL (12.0-16.0); Mean Corpuscular HGB CONC 32.6 g/dL (32.0-36.0); Mean Corpuscular Volume 76.6 fL (78.0-98.0); Mean Platelet Volume 7.7 fL (7.4-10.4); Platelet Count 295 thou/uL (130-400); RBC Distribution Width 14.3 % (11.5-14.5); Red Blood Cell (RBC) Count 4.48 mill/uL (4.20-5.40); White Blood Cell (WBC) Count 7.8 thou/uL (4.8-10.8)
[2019-06-14 14:43] LABS: Bacteria/HPF None Seen HPF (None Seen); Bilirubin Negative (Negative); Blood, Urine 2+ (Negative); Clarity Clear (Clear); Glucose, Urine (Dipstick) Normal (Negative); Leukocyte 250 Leu/uL (Negative); Nitrite Negative (Negative); Protein, Urine (Dipstick) Negative (Neg-Trace); RBC/HPF 21-50 HPF (0-3); Urobilinogen Normal mg/dL (Less than 2)
[2019-06-14 14:46] LABS: Pregnancy Test - Urine (BHCG) Negative (Negative); Pregu Control Background? CLEAR/WHITE (CLR/WHITE); Pregu Control Bar Appear? YES (CONTROL BAR); Specific Gravity 1.018 (1.002-1.036)
[2019-06-14 14:58] LABS: Amphetamine Not Detected (NotDetected); Barbiturates Screen Not Detected (NotDetected); Benzodiazepine Screen Detected (NotDetected); Cocaine Metabolite Screen Not Detected (NotDetected); Medtox Control Line Valid? VALID (VALID); Medtox Reader # READER 1; Methadone Not Detected (NotDetected); Methamphetamine Not Detected (NotDetected); Opiate Screen Not Detected (NotDetected); Oxycodone Screen Not Detected (NotDetected); Phencyclidine (PCP) Not Detected (NotDetected); THC/Cannabinoid Screen Not Detected (NotDetected); Tricyclic Screen Not Detected (NotDetected)
[2019-06-14 15:04] LABS: ALT (SGPT) 7 U/L (8-55); AST (SGOT) 14 U/L (5-34); Albumin 4.2 g/dL (3.5-5.0); Alkaline Phosphatase 55 U/L (40-110); Anion Gap 15 mmol/L (10-20); BUN (Urea Nitrogen) 10 mg/dL (7.0-18.7); Bilirubin, Total 0.4 mg/dL (0.2-1.2); Calc. Creatinine Clearance 0 mL/min (70-130); Calcium 9.3 mg/dL (7.8-10.44); Carbon Dioxide 17 mmol/L (22-29); Chloride 110 mmol/L (98-107); Estimated GFR-MDRD Greater than 90; Globulin 3.4 g/dL (2.4-3.5); Glucose 77 mg/dL (70-105); Potassium 4.3 mmol/L (3.5-5.1); Protein, Total 7.6 g/dL (6.0-8.3); Sodium 138 mmol/L (136-145)
== END 2019-06-14 16:23 | disposition home or self-care (01) ==
LOC: ERS 13:30
DX: R56.9 Unspecified convulsions (principal); I49.9 Cardiac arrhythmia, unspecified; Z79.899 Other long term (current) drug therapy
CPT/HCPCS: 80053; 80306; 81003; 81015; 81025; 84146; 85025; 96365; 96375; A4353; J2250; Q2009

== ENCOUNTER 2019-07-23 17:22 | Emergency (ER) | payer OTHER ==
[2019-07-23] MEDS ORDERED: Lorazepam 1 MG TAB ONE (17:44)
[2019-07-23 17:59] LABS: #Eosinphils 0.1 thou/uL (0.0-0.7); #Lymphocytes 2.3 thou/uL (1.20-3.40); #Monocytes 0.7 thou/uL (0.11-0.59); %Basophils 0.4 % (0.0-1.0); %Lymphocytes 27.9 % (21.0-51.0); %Monocytes 8.9 % (0.0-10.0); %Neutrophils 61.9 % (42.0-75.0); Hemoglobin 10.8 g/dL (12.0-16.0); Mean Corpuscular HGB CONC 32.1 g/dL (32.0-36.0); Mean Corpuscular Hemoglobin 24.4 pg (27.0-31.0); Mean Platelet Volume 7.8 fL (7.4-10.4); Platelet Count 303 thou/uL (130-400); RBC Distribution Width 13.9 % (11.5-14.5); Red Blood Cell (RBC) Count 4.45 mill/uL (4.20-5.40); White Blood Cell (WBC) Count 8.1 thou/uL (4.8-10.8)
[2019-07-23] MEDS ORDERED: Acetaminophen 500 MG TAB ONE (18:18)
[2019-07-23 18:21] LABS: ALT (SGPT) 16 U/L (8-55); AST (SGOT) 15 U/L (5-34); Albumin 4.4 g/dL (3.5-5.0); Alkaline Phosphatase 71 U/L (40-110); Anion Gap 12 mmol/L (10-20); BUN (Urea Nitrogen) 11 mg/dL (7.0-18.7); Bilirubin, Total 0.2 mg/dL (0.2-1.2); Calc. Creatinine Clearance 0 mL/min (70-130); Calcium 9.8 mg/dL (7.8-10.44); Carbon Dioxide 22 mmol/L (22-29); Chloride 106 mmol/L (98-107); Estimated GFR-MDRD Greater than 90; Globulin 3.6 g/dL (2.4-3.5); Glucose 74 mg/dL (70-105); Potassium 3.8 mmol/L (3.5-5.1); Sodium 136 mmol/L (136-145)
== END 2019-07-23 19:02 | disposition home or self-care (01) ==
LOC: ERS 17:22
DX: R56.9 Unspecified convulsions (principal)
CPT/HCPCS: 36415; 80053; 84146; 85025; 99284

== ENCOUNTER 2019-09-27 12:24 | Emergency (ER) | payer OTHER ==
[2019-09-27] MEDS ORDERED: Ondansetron PF 4 MG/2 ML Vial ONE (12:57)
[2019-09-27] MEDS ORDERED: Lorazepam 2 MG/ML VIAL ONE (12:57)
[2019-09-27] MEDS ORDERED: Acetaminophen 500 MG TAB ONE (12:57)
[2019-09-27 13:33] LABS: ALT (SGPT) 7 U/L (8-55); AST (SGOT) 13 U/L (5-34); Albumin 4.8 g/dL (3.5-5.0); Alkaline Phosphatase 64 U/L (40-110); Anion Gap 17 mmol/L (10-20); BUN (Urea Nitrogen) 9 mg/dL (7.0-18.7); Bilirubin, Total 0.4 mg/dL (0.2-1.2); Calc. Creatinine Clearance 0 mL/min (70-130); Calcium 9.8 mg/dL (7.8-10.44); Carbon Dioxide 21 mmol/L (22-29); Chloride 105 mmol/L (98-107); Dilantin Less than 1.8 ug/mL (10.0-20.0); Estimated GFR-MDRD 84; Globulin 3.6 g/dL (2.4-3.5); Glucose 103 mg/dL (70-105); Potassium 3.7 mmol/L (3.5-5.1); Protein, Total 8.4 g/dL (6.0-8.3); Sodium 139 mmol/L (136-145)
[2019-09-27 13:37] LABS: #Eosinphils 0.1 thou/uL (0.0-0.7); #Lymphocytes 1.6 thou/uL (1.20-3.40); #Monocytes 0.5 thou/uL (0.11-0.59); #Neutrophils 7.5 thou/uL (1.40-6.50); %Basophils 0.5 % (0.0-1.0); %Eosinophils 0.6 % (0.0-10.0); %Lymphocytes 16.4 % (21.0-51.0); %Monocytes 4.8 % (0.0-10.0); %Neutrophils 77.8 % (42.0-75.0); Hemoglobin 11.7 g/dL (12.0-16.0); MDiff Complete? YES; Mean Corpuscular HGB CONC 32.1 g/dL (32.0-36.0); Mean Corpuscular Hemoglobin 24.1 pg (27.0-31.0); Mean Corpuscular Volume 74.9 fL (78.0-98.0); Mean Platelet Volume 7.9 fL (7.4-10.4); Microcytosis SLIGHT = 6-15 cells (100X) (0-5/hpf); Platelet Count 321 thou/uL (130-400); RBC Distribution Width 15.4 % (11.5-14.5); Red Blood Cell (RBC) Count 4.87 mill/uL (4.20-5.40); White Blood Cell (WBC) Count 9.7 thou/uL (4.8-10.8)
[2019-09-27] MEDS ORDERED: FOSPHENYTOIN SODIUM IVPB SCH (14:00)
[2019-09-27] MEDS ORDERED: SODIUM CHLORIDE 0.9% IVPB SCH (14:00)
[2019-09-27] MEDS ORDERED: diphenhydrAMINE 50 MG/ML VIAL ONE (14:53)
--- NOTE | 2019-09-27 15:11 | CT ---
CT Brain WO Con History: Seizure Comparison: CT brain 2019 Findings: No acute hemorrhage or infarct. No midline shift or mass effect. Ventricular size and extra -axial CSF spaces are normal. Calvarium is intact. Paranasal sinuses and mastoids are clear. Impression: No acute intracranial abnormality.
== END 2019-09-27 17:30 | disposition home or self-care (01) ==
LOC: ERS 12:24
DX: G40.909 Epilepsy, unspecified, not intractable, without status epilepticus (principal)
CPT/HCPCS: 70450; 80053; 80185; 84702; 85025; 96361; 96365; 96375; J1200; J2060; J2405; J3490; Q2009

== ENCOUNTER 2020-01-08 16:54 | Observation (INO) | payer OTHER ==
[2020-01-08 18:11] LABS: #Eosinphils 0.1 thou/uL (0.0-0.7); #Lymphocytes 1.7 thou/uL (1.20-3.40); #Monocytes 0.5 thou/uL (0.11-0.59); #Neutrophils 6.8 thou/uL (1.40-6.50); %Basophils 0.5 % (0.0-1.0); %Eosinophils 1.2 % (0.0-10.0); %Lymphocytes 18.9 % (21.0-51.0); %Monocytes 5.6 % (0.0-10.0); %Neutrophils 73.8 % (42.0-75.0); Hemoglobin 11.7 g/dL (12.0-16.0); Mean Corpuscular Volume 77.4 fL (78.0-98.0); Mean Platelet Volume 7.4 fL (7.4-10.4); Platelet Count 354 thou/uL (130-400); RBC Distribution Width 14.5 % (11.5-14.5); Red Blood Cell (RBC) Count 4.87 mill/uL (4.20-5.40); White Blood Cell (WBC) Count 9.2 thou/uL (4.8-10.8)
[2020-01-08] MEDS ORDERED: levETIRAcetam 2,000 MG in Sodium Chloride 0.9% 100 ML IVPB ONE (18:15)
[2020-01-08 18:27] LABS: BHCG - Serum Negative (NEGATIVE); Pregs Control Background? CLEAR/WHITE (CLR/WHITE); Pregs Control Bar Appear? YES (CONTROL BAR)
[2020-01-08 18:32] LABS: ALT (SGPT) 10 U/L (8-55); AST (SGOT) 15 U/L (5-34); Albumin 4.3 g/dL (3.5-5.0); Alkaline Phosphatase 84 U/L (40-110); Anion Gap 13 mmol/L (10-20); BUN (Urea Nitrogen) 9 mg/dL (7.0-18.7); Bilirubin, Total 0.3 mg/dL (0.2-1.2); Calc. Creatinine Clearance 0 mL/min (70-130); Calcium 9.4 mg/dL (7.8-10.44); Carbon Dioxide 26 mmol/L (22-29); Chloride 104 mmol/L (98-107); Globulin 3.9 g/dL (2.4-3.5); Glucose 99 mg/dL (70-105); Potassium 3.9 mmol/L (3.5-5.1); Protein, Total 8.2 g/dL (6.0-8.3); Sodium 139 mmol/L (136-145)
[2020-01-08] MEDS ORDERED: levETIRAcetam in NS 0 ML ONE (18:45)
--- NOTE | 2020-01-08 19:24 | CT ---
HEAD CT WITHOUT CONTRAST: 01/08/20 COMPARISON: 09/27/19, 01/12/19. HISTORY: Altered mental status. Seizure. FINDINGS: No parenchymal hemorrhage. No extra-axial hematoma. No midline shift. Basilar cisterns are patent. Brain volume, age appropriate. Cortical guadarrama white matter differentiation is preserved. No hydrocephalus. Intact calvarium. Adequate aeration of the sinuses and mastoid air cells. IMPRESSION: No acute intracranial process. POS: PPP
[2020-01-08] MEDS ORDERED: Calcium Carbonate 500 MG ChewTAB PO PRN (23:19)
[2020-01-08] MEDS ORDERED: Acetaminophen 650 MG Suppository PR PRN (23:19)
[2020-01-08] MEDS ORDERED: Ondansetron PF 4 MG/2 ML Vial IVP PRN (23:19)
[2020-01-08] MEDS ORDERED: Acetaminophen 325 MG TAB PO PRN (23:19)
[2020-01-08] MEDS ORDERED: HYDROcodone/Acetaminophen 5/325 mg Tablet PO PRN (23:19)
[2020-01-08] MEDS ORDERED: Ondansetron ODT 4 MG TAB PO PRN (23:19)
--- NOTE | 2020-01-08 23:26 | PDOC.HHP ---
Hospitalist HPI - History of Present Illness seizure History of Present Illness: Case of an 24y/o female with a pmhx of epilepsy and pots who comes to hospital after and episode of seizure. patient refers she was on her usual state of health until today when she had an episode of seizure while sitting in the car. Her last seizure previously to today was 3 months ago and her neurologist Dr. Connor switched her medications from Keppra to Lamictal. She refers compliance with medication. She refers feeling before episode, does refer some cough that started today. She currently has a slight headache, slight nausea, some tingling on her left hand. She said all of this is typical with her seizures and goes away. She has some general body aches currently also which she also said is typical with her seizures. She is alert and oriented x3 currently. EMS said that she was A&O x2 when they arrived. She improved en route. At the ED patient had another episode of seizure which prompt ED to hospitalize patient for observation for which they called hospitalist for admission. patient denies fever chils n/v dysuria or diarrhea Hospitalist ROS - Review of Systems All other systems reviewed; all pertinent +/- noted in HPI/Subj Hospitalist History - Past Surgical History Past Surgical History: reports: Tonsillectomy Other Surgical History: ademnoidectomy - Family History Family History: reports: no pertinent history - Social History Smoking Status: Never smoker Alcohol: reports: None Drugs: reports: none Living Situation: With Family - Exam General Appearance: NAD, awake alert Eye: PERRL, anicteric sclera ENT: normocephalic atraumatic, no oropharyngeal lesions, moist mucosa Neck: supple, symmetric, no JVD, no thyromegaly Heart: RRR, no murmur, no gallops, no rubs Respiratory: CTAB, no wheezes, no rales, no ronchi Gastrointestinal: soft, non-tender, non-distended, normal bowel sounds Extremities: no cyanosis, no clubbing, no edema Skin: normal turgor, no lesions, no rashes Neurological: cranial nerve grossly intact, normal sensation to touch, no weakness Musculoskeletal: normal tone, normal strength, no muscle wasting Psychiatric: normal affect, normal behavior, A&O x 3 Hospitalist Results - Labs Result Diagrams: 01/08/20 17:46 01/08/20 17:46 Lab results: WBC 9.2 thou/uL (4.8-10.8) 01/08/20 17:46 Hgb 11.7 g/dL (12.0-16.0) L 01/08/20 17:46 Hct 37.7 % (36.0-47.0) 01/08/20 17:46 MCV 77.4 fL (78.0-98.0) L 01/08/20 17:46 Plt Count 354 thou/uL (130-400) 01/08/20 17:46 Neutrophils % 73.8 % (42.0-75.0) 01/08/20 17:46 Sodium 139 mmol/L (136-145) 01/08/20 17:46 Potassium 3.9 mmol/L (3.5-5.1) 01/08/20 17:46 Chloride 104 mmol/L (98-107) 01/08/20 17:46 Carbon Dioxide 26 mmol/L (22-29) 01/08/20 17:46 BUN 9 mg/dL (7.0-18.7) 01/08/20 17:46 Creatinine 0.86 mg/dL (0.6-1.1) 01/08/20 17:46 Glucose 99 mg/dL (70-105) 01/08/20 17:46 Calcium 9.4 mg/dL (7.8-10.44) 01/08/20 17:46 Total Bilirubin 0.3 mg/dL (0.2-1.2) 01/08/20 17:46 AST 15 U/L (5-34) 01/08/20 17:46 ALT 10 U/L (8-55) 01/08/20 17:46 Alkaline Phosphatase 84 U/L (40-110) 01/08/20 17:46 Serum Total Protein 8.2 g/dL (6.0-8.3) 01/08/20 17:46 Albumin 4.3 g/dL (3.5-5.0) 01/08/20 17:46 Hospitalist H&P A/P - Problem (1) Recurrent seizures Code(s): G40.909 - EPILEPSY, UNSP, NOT INTRACTABLE, WITHOUT STATUS EPILEPTICUS Status: Acute (2) POTS (postural orthostatic tachycardia syndrome) Code(s): R00.0 - TACHYCARDIA, UNSPECIFIED; I95.1 - ORTHOSTATIC HYPOTENSION Sta tus: Chronic - Plan Plan: Case of an 24y/o female with the stated pmhx who presents w recurrent seizures recurrent seizures - obs admission - loaded w josh at ED, will continue 500mg bid - seizure precautions - neurologist consulted - brain ct negative - normal cbc, no suggestion this might have been exacerbated by infection pots - continue home meds for chronic conditions
[2020-01-09 00:20] VITALS: BMI 32.5
[2020-01-09] MEDS ORDERED: Midodrine HCl 5 MG TAB PO SCH (09:00)
[2020-01-09] MEDS ORDERED: lamoTRIgine 100 MG TAB PO SCH (09:00)
[2020-01-09] MEDS ORDERED: levETIRAcetam 500 mg/5 ml Oral Solution PO SCH (09:00)
[2020-01-09] MEDS ORDERED: Enoxaparin Sodium 40 MG/0.4 ML SYRINGE SC SCH (09:00)
[2020-01-09] MEDS ORDERED: Propranolol HCl LA 60 MG CAP PO SCH (09:00)
--- NOTE | 2020-01-09 13:44 | PDOC.EEG ---
Neurology EEG Report - Report Report: This EEG was performed using 24 channel [employer] video digital EEG machine with 24 disc electrodes. This was an extended 2 hours 4 minutes of EEG recording. Digital analysis of the EEG was done for Billy and seizure detection which revealed no abnormalities. Background: The posterior background rhythm is 9-10 Hz. The posterior background rhythm attenuates with eye opening and enhances with eye closure. Photic stimulation: Bioccipital symmetric driving response seen with photic stimulation. Hyperventilation: Not performed. Sleep: Drowsiness is observed EEG diagnosis: Normal awake and drowsy EEG.
--- NOTE | 2020-01-09 14:07 | CON ---
NEUROLOGY CONSULTATION DATE OF CONSULTATION: 01/09/2020 REASON FOR CONSULTATION: Breakthrough seizures. HISTORY OF PRESENT ILLNESS: Ms. Frausto is a 24-year-old female with medical history significant for epilepsy, presented to the hospital after a breakthrough seizure. Per the patient, she was in usual health until yesterday when she had an episode of seizure while she was sitting in the car. Her last seizure was 3 months ago. She was recently switched by Dr. Rhodes from Keppra to Lamictal. Per the patient, she has been compliant with the medication, but she does have some cough and flu-like symptoms with nausea and headache. Per patient, her typical aura is a headache, nausea, and some tingling in the left hand which usually goes away, but however, this time, she had a seizure and she was postictal for few minutes. The patient is alert and oriented in the emergency room and then she had another episode which prompted the emergency room to admit her for observation. The patient denies focal weakness, focal paresthesias, nausea, vomiting, headache, chest pain, abdominal pain, recent illness or exposure to COVID. REVIEW OF SYSTEMS: All systems reviewed and were negative except the pertinent positives and negatives mentioned in the HPI. Past medical history: Epilepsy, POTS PAST SURGICAL HISTORY: Tonsillectomy, adenoidectomy. FAMILY HISTORY: No significant family history. SOCIAL HISTORY: The patient lives with family. Denies smoking, alcohol, illegal drug use. Allergies:: All cell time of year PHYSICAL EXAMINATION: VITAL SIGNS: Blood pressure 115/60, pulse 80, respiratory rate 18. General Appearance: NAD, awake alert Eye: PERRL, anicteric sclera ENT: normocephalic atraumatic, no oropharyngeal lesions, moist mucosa Neck: supple, symmetric, no JVD, no thyromegaly Heart: RRR, no murmur, no gallops, no rubs Respiratory: CTAB, no wheezes, no rales, no ronchi Gastrointestinal: soft, non-tender, non-distended, normal bowel sounds Extremities: no cyanosis, no clubbing, no edema Skin: normal turgor, no lesions, no rashes Neurological: Mental status: The patient is alert and oriented to person, place, and time. Speech is clear. Recent and remote memory intact. Fund of knowledge is appropriate. Cranial nerves 2 through 12 intact. Motor, muscle tone and bulk are normal. Strength 5/5 bilaterally. Sensory intact. Cerebellar, finger-nose testing intact. Gait deferred due to patient's safety reason. DATA REVIEWED: I reviewed the labs which were significant for anemia, hemoglobin 11.7. The rest of the labs were essentially unremarkable. EEG reviewed, which was normal for no evidence of seizure activity. WBC 9.2 thou/uL (4.8-10.8) 01/08/20 17:46 Hgb 11.7 g/dL (12.0-16.0) L 01/08/20 17:46 Hct 37.7 % (36.0-47.0) 01/08/20 17:46 MCV 77.4 fL (78.0-98.0) L 01/08/20 17:46 Plt Count 354 thou/uL (130-400) 01/08/20 17:46 Neutrophils % 73.8 % (42.0-75.0) 01/08/20 17:46 Sodium 139 mmol/L (136-145) 01/08/20 17:46 Potassium 3.9 mmol/L (3.5-5.1) 01/08/20 17:46 Chloride 104 mmol/L (98-107) 01/08/20 17:46 Carbon Dioxide 26 mmol/L (22-29) 01/08/20 17:46 BUN 9 mg/dL (7.0-18.7) 01/08/20 17:46 Creatinine 0.86 mg/dL (0.6-1.1) 01/08/20 17:46 Glucose 99 mg/dL (70-105) 01/08/20 17:46 Calcium 9.4 mg/dL (7.8-10.44) 01/08/20 17:46 Total Bilirubin 0.3 mg/dL (0.2-1.2) 01/08/20 17:46 AST 15 U/L (5-34) 01/08/20 17:46 ALT 10 U/L (8-55) 01/08/20 17:46 Alkaline Phosphatase 84 U/L (40-110) 01/08/20 17:46 Serum Total Protein 8.2 g/dL (6.0-8.3) 01/08/20 17:46 Albumin 4.3 g/dL (3.5-5.0) 01/08/20 17:46 ASSESSMENT AND PLAN: (1) Recurrent seizures Code(s): G40.909 - EPILEPSY, UNSP, NOT INTRACTABLE, WITHOUT STATUS EPILEPTICUS Status: Acute (2) POTS (postural orthostatic tachycardia syndrome) Code(s): R00.0 - TACHYCARDIA, UNSPECIFIED; I95.1 - ORTHOSTATIC HYPOTENSION Status: Chronic Ms. Kelton Frausto is admitted with breakthrough seizure. She was already loaded with Keppra in the emergency room. Continue Keppra 500 mg b.i.d. The patient's discharge regimen should be Lamictal 100 mg p.o. b.i.d. and Keppra 500 mg p.o. b.i.d. She should follow up with Dr. Rhodes as outpatient in 1 to 2 weeks for further adjustment of the medications. Neuro checks every 4 hours. Observe seizure precautions. Continue medical management per primary team. Thank you for the consult. Plan discussed in detail with the patient, patient's spouse, nursing staff and the primary attending Dr. Robledo. Job ID: [id number] [facility]ERNITY HOSPITALIzabela
--- NOTE | 2020-01-09 14:53 | PDOC.DS.DS ---
Provider - Provider Date of Admission: 01/08/20 19:38 Date of Discharge: 01/09/20 Admitting Provider: Carlyle Ireland Consultations: Neurology (Dr. Ram) Primary Care Physician: SINA IZAGUIRRE MD Course - Hospital Course Hospital Course: *Diagnosis: 1. Seizure 2. COVID-19 test result pending at the time of this dictation. Hospital course: Patient is a pleasant 22-year-old lady who was admitted to the hospital on January 08, 2020 for breakthrough seizures while on Lamictal. She was started on Keppra 500 mg 2 times a day after giving her a loading dose. She was seen by neurology service. Electroencephalogram was unremarkable. She has been cleared for discharge by neurology service. At the time of this dictation, COVID-19 test result was pending. Patient is advised to follow-up with primary care provider for the same. Resuscitation Status: 01/08/20 23:19 Resuscitation Status Routine Resuscitation Status: FULL: Full Resuscitation - Labs Lab Results: 01/08/20 17:46 01/08/20 17:46 Abnormal Lab Results - Last 48 hrs 01/08/20 17:46: Hgb 11.7 L, MCV 77.4 L, MCH 24.0 L, MCHC 31.0 L, Lymphocytes % 18.9 L, Neutrophils # 6.8 H 01/08/20 17:46: Globulin 3.9 H, Albumin/Globulin Ratio 1.1 L - Physical Exam Vitals: Vital Signs (12 hours) Temp Pulse Resp BP Pulse Ox 01/09/20 11:57 98 F 76 12 99/58 L 99 01/09/20 08:00 98 F 94 12 103/51 L 98 01/09/20 04:00 97.5 F L 94 16 105/64 99 Weight Admit Weight 166 lb 8 oz Weight 166 lb 8 oz Physical Exam: The patient was seen and examined on the day of discharge. Patient denies chest pain or shortness of breath. Vital signs are stable. S1 and S2 are heard. Lungs are clear to auscultation bilaterally. Plan - Discharge Medications Prescriptions: levETIRAcetam [Keppra] 500 mg PO BID #60 tab Home Medications: Medication Instructions Recorded Confirmed Type lamoTRIgine [LaMICtal] 100 mg PO BID #60 tab 01/19/19 01/09/20 Rx Propranolol HCl [Propranolol HCl 60 mg PO HS 04/22/19 01/09/20 History ER] Midodrine HCl 5 mg PO TID 01/09/20 01/09/20 History levETIRAcetam [Keppra] 500 mg PO BID #60 tab 01/09/20 Rx Allergies: oseltamivir [From Tamiflu] Allergy (Verified 05/19/19 14:17) - Discharge Instructions Discharge Instructions:: Follow-up with your primary care provider for COVID-19 test result. Activity:: Activity as Tolerated Nourishment:: Regular Diet - Follow up Plan Referrals: SINA IZAGUIRRE MD [Primary Care Provider] - 3 Days Rowdy Rhodes MD [Active] - 2-3 Weeks Disposition: HOME Quality - Care Measures CORE MEASURES:: N/A
[2020-01-09 15:53] VITALS: BP 101/57; TEMP 98.1
[2020-01-09 20:50] LABS: SARS-CoV-2 MS2 Positive; SARS-CoV-2 N Gene Negative; SARS-CoV-2 S Gene Negative; SARS-CoV-2 by NAA Not Detected (NotDetected); SARS-CoV-2 orf1ab Negative
[2020-01-09] MEDS ORDERED: FLU VACC QS2020-21(6MOS UP)/PF 60 MCG/0.5 ML SYRINGE IM ONE (21:00)
== END 2020-01-09 16:54 | disposition home or self-care (01) ==
LOC: ERS 16:54 → 2SE 19:38
PROVIDERS: ADMIT Internal Medicine; ATTEND Internal Medicine
DX: G40.909 Epilepsy, unspecified, not intractable, without status epilepticus (principal); I49.8 Other specified cardiac arrhythmias; Z79.899 Other long term (current) drug therapy; Z88.8 Allergy status to other drugs, medicaments and biological substances; Z20.828 Contact with and (suspected) exposure to other viral communicable diseases
CPT/HCPCS: 70450; 80053; 80175; 84703; 85025; 87635; 95712; 95816; 95819; 95957; 96365; G0378; J1953; J3490; U0003

== ENCOUNTER 2020-05-01 13:01 | Inpatient (IN) | payer OTHER ==
[2020-05-01] MEDS ORDERED: levETIRAcetam 500 MG/100 ML PREMIX BAG ONE ×2 (13:33→13:44)
[2020-05-01] MEDS ORDERED: Lorazepam 2 MG/ML VIAL ONE ×3 (13:33→18:48)
[2020-05-01 13:38] LABS: #Eosinphils 0.1 thou/uL (0.0-0.7); #Lymphocytes 1.8 thou/uL (1.20-3.40); #Monocytes 0.5 thou/uL (0.11-0.59); #Neutrophils 3.7 thou/uL (1.40-6.50); %Basophils 0.6 % (0.0-1.0); %Eosinophils 1.2 % (0.0-10.0); %Lymphocytes 29.6 % (21.0-51.0); %Monocytes 7.9 % (0.0-10.0); %Neutrophils 60.8 % (42.0-75.0); Hemoglobin 13.6 g/dL (12.0-16.0); Mean Corpuscular HGB CONC 32.7 g/dL (32.0-36.0); Mean Corpuscular Hemoglobin 25.8 pg (27.0-31.0); Mean Platelet Volume 7.2 fL (7.4-10.4); Platelet Count 378 thou/uL (130-400); RBC Distribution Width 14.2 % (11.5-14.5); Red Blood Cell (RBC) Count 5.28 mill/uL (4.20-5.40); White Blood Cell (WBC) Count 6.1 thou/uL (4.8-10.8)
[2020-05-01 13:44] LABS: BHCG - Serum Negative (NEGATIVE); Pregs Control Background? CLEAR/WHITE (CLR/WHITE); Pregs Control Bar Appear? YES (CONTROL BAR)
[2020-05-01 13:56] LABS: ALT (SGPT) 12 U/L (8-55); AST (SGOT) 18 U/L (5-34); Albumin 4.8 g/dL (3.5-5.0); Alkaline Phosphatase 98 U/L (40-110); Anion Gap 19 mmol/L (10-20); BUN (Urea Nitrogen) 11 mg/dL (7.0-18.7); Bilirubin, Total 0.2 mg/dL (0.2-1.2); Calc. Creatinine Clearance 0 mL/min (70-130); Calcium 9.8 mg/dL (7.8-10.44); Carbon Dioxide 18 mmol/L (22-29); Chloride 108 mmol/L (98-107); Globulin 4.4 g/dL (2.4-3.5); Glucose 74 mg/dL (70-105); Potassium 3.9 mmol/L (3.5-5.1); Protein, Total 9.2 g/dL (6.0-8.3); Sodium 141 mmol/L (136-145)
[2020-05-01] MEDS ORDERED: Lorazepam 2 MG/ML VIAL SLOW IVP PRN (16:17)
[2020-05-01] MEDS ORDERED: Ketorolac Tromethamine 30 MG/ML VIAL ONE (16:18)
[2020-05-01] MEDS ORDERED: Propranolol HCl LA 60 MG CAP PO SCH (21:00)
[2020-05-01] MEDS: Midodrine HCl 5 MG TAB PO SCH (21:07)
[2020-05-01] MEDS: levETIRAcetam 500 MG TAB PO SCH (21:07)
[2020-05-01] MEDS: lamoTRIgine 100 MG TAB PO SCH (21:07)
[2020-05-02 02:28] VITALS: BMI 32.5
[2020-05-02 04:57] LABS: #Basophils 0.1 thou/uL (0.0-0.2); #Eosinphils 0.1 thou/uL (0.0-0.7); #Lymphocytes 1.6 thou/uL (1.20-3.40); #Monocytes 0.5 thou/uL (0.11-0.59); %Eosinophils 1.4 % (0.0-10.0); %Lymphocytes 30.5 % (21.0-51.0); %Monocytes 9.7 % (0.0-10.0); %Neutrophils 57.4 % (42.0-75.0); Hemoglobin 11.3 g/dL (12.0-16.0); Mean Corpuscular HGB CONC 33.2 g/dL (32.0-36.0); Mean Corpuscular Hemoglobin 26.1 pg (27.0-31.0); Mean Corpuscular Volume 78.7 fL (78.0-98.0); Platelet Count 312 thou/uL (130-400); RBC Distribution Width 14.1 % (11.5-14.5); Red Blood Cell (RBC) Count 4.31 mill/uL (4.20-5.40); White Blood Cell (WBC) Count 5.3 thou/uL (4.8-10.8)
[2020-05-02 05:06] LABS: SARS-CoV-2 PCR by NAA Not Detected (NotDetected)
[2020-05-02 05:28] LABS: Anion Gap 12 mmol/L (10-20); BUN (Urea Nitrogen) 8 mg/dL (7.0-18.7); Calc. Creatinine Clearance 133 mL/min (70-130); Calcium 8.4 mg/dL (7.8-10.44); Carbon Dioxide 21 mmol/L (22-29); Chloride 107 mmol/L (98-107); Glucose 84 mg/dL (70-105); Potassium 3.8 mmol/L (3.5-5.1); Sodium 136 mmol/L (136-145)
[2020-05-02 08:52] LABS: Bilirubin Negative (Negative); Blood, Urine Negative (Negative); Clarity Clear (Clear); Glucose, Urine (Dipstick) Normal (Negative); Ketone, Urine Negative (Negative); Leukocyte 25 Leu/uL (Negative); Nitrite Negative (Negative); Protein, Urine (Dipstick) Negative (Neg-Trace); RBC/HPF 0-3 HPF (0-3); Specific Gravity, Urine 1.021 (1.002-1.036); Urobilinogen Normal mg/dL (Less than 2); WBC/HPF 0-3 HPF (0-3); pH, Urine 5.5 (5.0-9.0)
[2020-05-02 08:53] LABS: Bacteria/HPF 1+ HPF (None Seen); Urine Culture Reflex No No
[2020-05-02] MEDS: Acetaminophen 325 MG TAB PO PRN ×3 (09:52→21:11)
[2020-05-02] MEDS: levETIRAcetam 500 MG TAB PO SCH ×2 (09:52→21:10)
[2020-05-02] MEDS: Midodrine HCl 5 MG TAB PO SCH ×3 (09:53→21:11)
[2020-05-02] MEDS: lamoTRIgine 100 MG TAB PO SCH ×2 (09:53→21:11)
[2020-05-02] MEDS ORDERED: Ondansetron PF 4 MG/2 ML Vial IVP PRN (13:37)
[2020-05-03] MEDS: levETIRAcetam 500 MG TAB PO SCH (09:34)
[2020-05-03] MEDS: Midodrine HCl 5 MG TAB PO SCH ×2 (09:35→15:11)
[2020-05-03] MEDS: lamoTRIgine 100 MG TAB PO SCH (09:35)
[2020-05-03 12:08] VITALS: BP 97/54; TEMP 98
== END 2020-05-03 15:32 | disposition home or self-care (01) | DRG 101 ==
LOC: ERS 13:01 → 2SE 15:38
PROVIDERS: ADMIT Internal Medicine; ATTEND Internal Medicine
DX: G40.901 Epilepsy, unspecified, not intractable, with status epilepticus (principal); Z20.822 Contact with and (suspected) exposure to COVID-19; F44.5 Conversion disorder with seizures or convulsions; I95.89 Other hypotension; D64.9 Anemia, unspecified; R82.71 Bacteriuria; I10 Essential (primary) hypertension; F12.10 Cannabis abuse, uncomplicated; Z88.8 Allergy status to other drugs, medicaments and biological substances; Z79.899 Other long term (current) drug therapy
CPT/HCPCS: 36415; 80048; 80053; 81001; 82533; 84146; 84443; 84703; 85025; 87635; 95712; 95819; 95957; 96365; 96375; 96376; J1885; J1953; J2060; J2405; U0003; U0005

== ENCOUNTER 2023-08-02 11:50 | Emergency (ER) | payer OTHER | END 2023-08-02 16:45 | disposition home or self-care (01) | LOC: ERS 11:50 | DX: O99.891 Other specified diseases and conditions complicating pregnancy (principal); R10.9 Unspecified abdominal pain; Z3A.24 24 weeks gestation of pregnancy | CPT/HCPCS: 76815 ==